=== PATIENT | male | born 1935 | race Caucasian/White ===

== ENCOUNTER 2022-02-10 09:13 | Emergency (ER) | payer MEDICARE, OTHER, SELFPAY ==
--- NOTE | ~2022-02-10 | CT_ITS ---
EXAMINATION: NONCONTRAST HEAD CT NONCONTRAST CERVICAL SPINE CT INDICATION INFORMATION: Fall with head strike. COMPARISON: 06/11/2021 TECHNIQUE: Separate noncontrast CT examinations of the head and cervical spine were performed. Coronal and sagittal images were created for each examination at the technologist workstation. This CT examination was performed using dose optimization techniques as appropriate, variously including the following: *Automated exposure control *Adjustment of mA and/or kV according to patient size (this includes techniques or standardized protocols for targeted exams where dose is matched to indication/reason for exam; i.e. extremities or head) *Use of iterative reconstruction technique DLP: 992 mGy-cm FINDINGS: Head: There is no evidence of acute intracranial hemorrhage or territorial infarction. No abnormal mass effect or midline shift is seen. Rodriguez to white matter differentiation is well preserved. No extra-axial fluid collections are identified. No hydrocephalus. Proportional prominence of the ventricles and sulcal spaces is consistent with moderate volume loss. Patchy periventricular and deep white matter hypoattenuation is consistent with moderate small vessel ischemic changes. No acute osseous or soft tissue abnormality. The mastoid air cells and visualized portions of the paranasal sinuses are well aerated. Cervical spine: There is anatomic alignment of the vertebral bodies and posterior elements. The atlantoaxial and atlantooccipital articulations are intact. Vertebral body heights are maintained. There is multilevel intervertebral disc space narrowing with endplate osteophyte formation and facet arthropathy. No evidence of acute fracture. No prevertebral soft tissue swelling. Mild centrilobular and paraseptal emphysema noted at the lung apices. Calcified granuloma at the right upper lung. Biapical pleural thickening. Secretions noted in the trachea.. The thyroid gland is unremarkable. CT/CT cervical spine wo IV con IMPRESSION: 1. No acute intracranial finding. Chronic volume loss with small vessel ischemic change. 2. No acute fracture or malalignment of the cervical spine. Moderate degenerative changes.
--- NOTE | 2022-02-10 09:20 | ED.GENADULT ---
HPI - General Adult General Chief complaint: Fall Stated complaint: HEAD LAC Time Seen by Provider: 02/10/22 09:18 Source: patient, family (son) and EMS Mode of arrival: EMS Limitations: no limitations History of Present Illness HPI narrative: Patient is a 86 year old assigned male at with a history of frequent falls presenting to the emergency department today with a scalp laceration after a fall. Patient's son states that the patient had a fall this morning and hit his head, causing a laceration. Patient's son states that he does not know when the patient's last tetanus shot was. Patient's son states that the patient did not have any loss of consciousness. Patient denies any dizziness, lightheadedness, abdominal pain, nausea, vomiting, fever, chills, blurry vision, double vision, loss of vision, chest pain, difficulty breathing, shortness of breath, back pain, night sweats, pain with urination, increased urinary frequency, increased urinary urgency, blood in his urine or stool, syncope or a near syncopal episode, bowel incontinence, bladder incontinence, bowel retention, bladder retention, or any other complaints at this time. Onset (ago): hour(s) Location: head Radiation: non-radiation Severity: mild Severity scale (1-10): 3 Relieving factors: none Exacerbating factors: none Associated symptoms: denies other symptoms Treatments prior to arrival: none Related Data Allergies Allergy/AdvReac Type Severity Reaction Status Date / Time No Known Allergies Allergy Unverified 10/23/19 15:18 [No Known Allergies*] Review of Systems Constitutional: Constitutional: Reports no additional constitutional complaints, Denies chills, Denies fever(s) and Denies night sweats Eyes: Eyes: Reports no additional eye complaints, Denies blurry vision, Denies change in vision, Denies diplopia, Denies eye discharge, Denies loss of vision and Denies eye pain ENT: Denies dizziness Cardiovascular: Cardiovascular: Reports no additional cardiovascular complaints, Denies chest pain, Denies lightheadedness, Denies Loss of Consciousness and Denies dyspnea Respiratory: Respiratory: Reports no additional respiratory complaints and Denies dyspnea Gastrointestinal: Gastrointestinal: Reports no additional gastrointestinal complaints, Denies abdominal pain, Denies melena, Denies hematochezia, Denies change in bowel habits and Denies change in stool character Genitourinary: Genitourinary: Reports no additional male genitourinary complaints, Denies hematuria, Denies oliguria, Denies difficulty urinating, Denies dysuria, Denies urinary frequency, Denies urinary hesitancy, Denies urinary incontinence and Denies urinary urgency Musculoskeletal: Musculoskeletal: Reports no additional musculoskeletal complaints, Denies numbness and Denies tingling Comments: head laceration Neurologic: Denies dizziness, Denies loss of vision, Denies numbness and Denies tingling Psychiatric: Psychiatric: Reports no additional psychiatric complaints Endocrine: Endocrine: Reports no additional endocrine complaints Hematologic/Lymphatic: Hematologic/Lymphatic: Reports no additional hematologic/lymphatic complaints Allergic/Immunologic: Allergic/Immunologic: Reports no additional allergic/immunologic complaints PMFSH Past Medical History Attestation statement: The following information was validated with the patient. (all information validated with the patient's son) Source: old records reviewed, obtained from family (patient's son) and nursing notes reviewed Social History Social History Advance Directives: No Physical Exam ED Vital Signs: Vital Signs - 24 hr 02/10/22 09:28 Temperature 98.2 F Pulse Rate 88 Respiratory Rate 18 Blood Pressure 132/65 Pulse Oximetry 99 Oxygen Delivery Method Room Air BMI result Body Mass Index 18.2 Const General: cooperative, no acute distress, alert and awake Nutritional Appearance: well nourished Orientation/consciousness: patient oriented x3 Limitations: no limitations HENMT Other: 3cm laceration to the left frontal scalp, no active bleeding Ears: hearing grossly normal bilaterally and external ears normal General nose exam: Normal external nose present, no nasal discharge noted and no epistaxis Face and sinus: Yes normal facial exam, No abrasion and No laceration Mouth: Normal oral and palatal mucosa present, no drooling and no muffled voice Eyes General: appearance normal, both eyes and all related structures Periorbital: periorbital findings normal Eyelids: Yes eyelids normal Conjunctivae: conjunctivae normal Pupils: Equal, round and reactive pupils present EOM: EOMs intact bilaterally Neck Neck: Yes normal visual inspection, Yes full ROM and Yes no lymphadenopathy Chest Chest palpation & inspection: normal inspection of the chest Resp Effort & Inspection: normal respiratory effort and able to speak in complete sentences Auscultation: clear to auscultation bilaterally Cardio Rate: regular rate Rhythm: regular rhythm GI Inspection: Yes normal to inspection Palpation (GI): Soft to palpation, not firm, nontender, no guarding and not rigid Neuro General: patient oriented x3 and moves all extremities Cranial nerves: Yes Equal, round and reactive pupils present Cognition (Neuro): normal cognition Motor exam (neuro): 5/5 motor strength present throughout Sensory Exam: Normal double simultaneous stimulation for sensation Coordination: [id number] test normal Extrem General: Yes normal to inspection, Yes full ROM and Yes capillary refill normal Psych Appearance: grossly normal Mental Status: mental status grossly normal Affect: normal affect Attitude: cooperative Thought process: Normal thought process present Thought content: Normal thought content present Insight: Good insight present (Psych) Medications Administered Discontinued Medications Generic Name Dose Route Start Last Admin Trade Name Freq PRN Reason Stop Dose Admin Diphtheria/Tetanus/Acell Pertussis 0.5 ml 02/10/22 12:07 02/10/22 12:27 Diphth,Pertus(Acell),Tet Adult 0.5 Ml Syringe IM 02/10/22 12:08 0.5 ml .ONCE ONE Administration Lidocaine HCl 1 appl 02/10/22 11:08 02/10/22 11:20 Lidocaine 4 % Cream Kit TOPICAL 02/10/22 11:09 1 appl ONCE ONE Administration Protocol Procedures Laceration Laceration 1: Site: scalp Side (If applicable): left Size (cm): 3 Description: linear Depth: simple, single layer Local Anesthetic: other anesthetic (LMX) Amount of anesthesia used (mL): 10 Pre-repair: wound explored, irrigated extensively and deep structures intact Skin layer closed with: nylon Size (cm): 6-0 Number of sutures: 3 Technique: simple, interrupted Medical Decision Making Medical Decision Making [facility] Narrative: Patient is a 86 year old assigned male at with a history of frequent falls presenting to the emergency department today after a fall. Patient's physical exam showed a 3cm laceration to the left frontal scalp with no active bleeding. Patient's head and C-Spine CTs showed no acute process. I explained my physical exam findings as well as all test results to the patient and the patient's son. I answered all questions asked by the patient and the patient's son. Patient's laceration was repaired, per procedure note, without incident. I stressed the importance of the patient taking his medication as prescribed. I stressed the importance of the patient following up with his primary care provider. I stressed the importance of the patient having his sutures removed in 10-14 days. I stressed the importance of the patient NOT soaking the repaired area. I stressed the importance of the patient returning to the emergency department immediately if he were to develop any dizziness, shortness of breath, difficulty breathing, chest pain, blurry vision, loss of vision, nausea, vomiting, abdominal pain, fever, chills, back pain, or any other complaints. Patient and the patient's son verbalized agreement and understanding with this treatment plan and discharge. Differential Diagnosis Differential Diagnoses: The differential diagnosis associated with the presentation includes laceration, avulsion, scalp wound Radiology Impression Discussion of test interpretation with radiology: I have reviewed the radiologist's reading. Radiologist Impression: My interpretation is in agreement with the radiologist's impression of these imaging studies. EXAMINATION: NONCONTRAST HEAD CT NONCONTRAST CERVICAL SPINE CT INDICATION INFORMATION: Fall with head strike. COMPARISON: 06/11/2021 TECHNIQUE: Separate noncontrast CT examinations of the head and cervical spine were performed. Coronal and sagittal images were created for each examination at the technologist workstation. This CT examination was performed using dose optimization techniques as appropriate, variously including the following: *Automated exposure control *Adjustment of mA and/or kV according to patient size (this includes techniques or standardized protocols for targeted exams where dose is matched to indication/reason for exam; i.e. extremities or head) *Use of iterative reconstruction technique DLP: 992 mGy-cm FINDINGS: Head: There is no evidence of acute intracranial hemorrhage or territorial infarction. No abnormal mass effect or midline shift is seen. Rodriguez to white matter differentiation is well preserved. No extra-axial fluid collections are identified. No hydrocephalus. Proportional prominence of the ventricles and sulcal spaces is consistent with moderate volume loss. Patchy periventricular and deep white matter hypoattenuation is consistent with moderate small vessel ischemic changes. No acute osseous or soft tissue abnormality. The mastoid air cells and visualized portions of the paranasal sinuses are well aerated. Cervical spine: There is anatomic alignment of the vertebral bodies and posterior elements. The atlantoaxial and atlantooccipital articulations are intact. Vertebral body heights are maintained. There is multilevel intervertebral disc space narrowing with endplate osteophyte formation and facet arthropathy. No evidence of acute fracture. No prevertebral soft tissue swelling. Mild centrilobular and paraseptal emphysema noted at the lung apices. Calcified granuloma at the right upper lung. Biapical pleural thickening. Secretions noted in the trachea.. The thyroid gland is unremarkable. CT/CT head/brain wo IV con IMPRESSION: 1.? No acute intracranial finding. Chronic volume loss with small vessel ischemic change. 2.? No acute fracture or malalignment of the cervical spine. Moderate degenerative changes. Dictated By: Vini Sheridan MD Signed By: Electronically signed by Vini Sheridan MD 02/10/22 1050 Independent Historian Clinical information obtained from an independent historian. History obtained from or confirmed by: EMS and Other (patient's son) Discharge Plan Discharge Clinical Impression: Fall, Laceration of scalp Patient Disposition: Home, Self-Care Additional Instructions: Have your sutures removed in 10-14 days. Do NOT soak the sutured area. Follow up with your primary care provider. Return to the emergency department immediately if your symptoms worsen or if you develop any dizziness, shortness of breath, difficulty breathing, chest pain, blurry vision, loss of vision, nausea, vomiting, abdominal pain, fever, chills, back pain, or any other complaints. Interventions: ED Discharge Assessment Last Done: 02/10/22 12:29 Discharge Date/Time: 02/10/22 12:29 Print Language: Cuban
[2022-02-10 09:28] VITALS: BP 132/65; PULSE 88; RESP 18; TEMP 36.8; O2SAT 99; BMI 18.2
--- NOTE | 2022-02-10 09:35 | PC.NURSE ---
86 y/o M BIBA from home s/p fall overnight. VNA found patient on the floor, moderate head lac to occiput. pt with many recent falls. AOx2-3. VSS
--- OUTSIDE RECORDS SUMMARY | 2022-02-10 09:59 | XMS_ITS | Continuity of Care Document ---
:1935 Author Organization [facility] Address [address] [place] [id number]- Care Team Providers Name Role Phone Clraita Godoy MD Primary Care Physician Encounter [facility] Date(s): 03/19/20 - 03/26/20 [facility] [address] [place] [id number]- Attending Physician: Clarita Godoy MD Allergies, Adverse Reactions, Alerts Substance Reaction Severity Status NKA Active Immunizations Given and Recorded Vaccine Date Status Refusal Reason influenza virus vaccine, inactivated1 01/17/19 Given influenza virus vaccine, inactivated2 11/23/16 Given influenza virus vaccine, inactivated 12/15/15 Given influenza virus vaccine, inactivated 01/25/15 Given influenza virus vaccine, inactivated 11/24/13 Given influenza virus vaccine, inactivated 10/18/12 Given influenza virus vaccine, inactivated3 10/28/11 Given pneumococcal 13-valent vaccine 06/30/14 Given pneumococcal 23-valent vaccine 11/24/13 Given Influenza Virus Vaccine (oldterm)4 01/22/08 Given Zoster Vaccine Live 07/29/07 Given Tet/Diphth/Acel, Pertussis (oldterm) 01/14/07 Given Pneumococcal Vaccine (oldterm) 01/14/07 Given 1Result Comment: [facility]# [id number] Comment: [11/23/2016] [id number] Note: Received at [facility] 4Admin Note: somewhere else Medications Altace 10 mg oral capsule 1 capsule = 10 mg, By Mouth, Daily, # 90 capsule, 3 Refills, Maintenance, 07/28/19 16:54:00 EDT, Capsule, [id number], 176, cm, 01/17/19 10:25:00 EST, Height Start Date: 07/28/19 Status: OrderedAmbien 5 mg oral tablet 1 tablet = 5 mg, By Mouth, Daily at bedtime, PRN for sleep, Fill on or after 07/07/19, # 30 tablet, 2Refills, Maintenance, 08/04/19 16:21:00 EDT, Tablet, [facility] #[id number], 176, cm, 01/17/19 10:25:00 EST, Height Start Date: 08/04/19 Stop Date: 11/02/19 Status: Orderedamoxicillin 250 mg oral capsule 4 capsule = 1,000 mg, By Mouth, Once, given 1 hour prior to dental procedures, # 4 capsule, 5 Refills, Soft Stop, 07/20/17 11:37:42 EDT Start Date: 07/20/17 Status: Orderedclopidogrel 75 mg oral tablet 75 mg, 1, tablet, By Mouth, Daily, # 90 tablet, Refills 3, Tot. Refills 3, Maintenance, 07/28/19 16:56:00 EDT, Route to Pharmacy Electronically, [facility] #[id number], 176, cm, 01/17/19 10:25:00 EST, Height Start Date: 07/28/19 Status: OrderedCrestor 20 mg oral tablet 1 tablet = 20 mg, By Mouth, Daily, # 90 tablet, 3 Refills, Maintenance, 07/28/19 16:55:00 EDT, Tablet, [facility] #[id number], 176, cm, 01/17/19 10:25:00 EST, Height Start Date: 07/28/19 Status: Orderedmetoprolol 25 mg oral tablet, extended release 25 mg, 1, tablet, By Mouth, Daily, # 90 tablet, Refills 3, Tot. Refills 3, Maintenance, 07/28/19 16:55:00 EDT, Route to Pharmacy Electronically, [facility]/pharm[facility] #[id number], 176, cm, 01/17/19 10:25:00 EST, Height Start Date: 07/28/19 Status: OrderedMiraLax oral powder for reconstitution See Instructions, 17 Gm By Mouth if no BM for 2 days dissolve in water or juice, # 255 Gm, 0 Refills, Acute 11/26/20 8:42:00 EDT, 11/27/19 8:41:00 EDT, REC Powder, [facility]/pharm[facility] #[id number], 17 Gm By Mouth ifno BM for 2 days; dissolve in water or juice, 17... Start Date: 11/27/19 Stop Date: 11/26/20 Status: Orderedomeprazole 20 mg oral enteric coated capsule See Instructions, TAKE 1 CAPSULE BY MOUTH EVERY DAY, # 90 capsule, 3 Refills, Maintenance, [facility] [id number], 176, cm, 01/17/19 10:25:00 EST, Height Start Date: 07/28/19 Status: Orderedomeprazole 20 mg oral enteric coated capsule 1 capsule = 20 mg, By Mouth, Daily, # 90 capsule, 3 Refills, Soft Stop, 07/28/19 16:54:00 EDT, [facility]/pharmacy #[id number], 176, cm, 01/17/19 10:25:00 EST, Height Start Date: 07/28/19 Status: OrderedtraZODone 50 mg oral tablet See Instructions, TAKE 1 TABLET BY MOUTH EVERYDAY AT BEDTIME, # 90 each, Refills 3, Tot. Refills 3, 03/19/20 14:38:00 EST, Instructions Replace Required Details, Route to Pharmacy Electronically, [facility]/pharm[facility] #[id number], 176, cm, 03/19/20 13:53:00 EST, Height Start Date: 03/19/20 Status: Ordered Problem List Condition Effective Dates Status Health Status Informant Gait disturbance(Confirmed) Active Allergic rhinitis(Confirmed) Active AF (atrial fibrillation)(Confirmed) Active Basal cell carcinoma (BCC) of left Active ear(Confirmed) CAD - Coronary artery Active disease(Confirmed) CAD (coronary artery Active disease)(Confirmed) Coronary stent patent BMS RCA Active 2009(Confirmed) Dementia(Confirmed) Active Fatty liver(Confirmed) Active Gastroesophageal reflux Active disease(Confirmed) S/P CABG x 4(Confirmed) Active Hypercholesterolemia(Confirmed) Active Hypertension(Confirmed) Active Insomnia(Confirmed) Active [place] - Myocardial infarction(Confirmed) Active Nephrolithiasis(Confirmed) Active Placement of stents in coronary Active artery(Confirmed) Pneumonia(Confirmed) Active Vital Signs Most recent to oldest [Reference Range]: 1 Height 176 cm (03/19/20 1:53 PM) Social History Social History Type Response Smoking Status Never smoker; Tobacco user i n household: No entered on: 06/30/14 Sex
--- OUTSIDE RECORDS SUMMARY | 2022-02-10 09:59 | XMS_ITS | Continuity of Care Document ---
:1935 Author Organization [facility] Address [address] [place] [address]- Care Team Providers Name Role Phone Clarita Godoy MD Primary Care Physician Encounter 06/25/19 - 08/27/19 [facility] [address] [place] [address]- [facility] Discharge Disposition: GOALS MET Allergies, Adverse Reactions, Alerts Substance Reaction Severity [...] Pneumococcal Vaccine (oldterm) 01/14/07 Given 1Result Comment: [facility]# [id number] Comment: [11/23/2016] [id number] Note: Received at [facility] 4Admin Note: somewhere else Medications Altace 10 [...] tablet, 2Refills, Maintenance, 08/04/19 16:21:00 EDT, [id number], cm, 01/17/19 10:25:00 EST, Height [...] 07/28/19 16:56:00 EDT, [id number], cm, 01/17/19 10:25:00 EST, Height Start Date: 07/28/19 Status: OrderedCrestor 20 mg oral tablet 1 tablet = 20 mg, By Mouth, Daily, # 90 tablet, 3 Refills, Maintenance, 07/28/19 16:55:00 EDT, Table[facility], [id number], cm, 01/17/19 10:25:00 EST, Height Start Date: 07/28/19 Status: Orderedmetoprolol 25 mg oral tablet, extended release 25 mg, 1, tablet, By Mouth, Daily, # 90 tablet, Refills 3, Tot. Refills 3, Maintenance, 07/28/19 16:55:00 EDT, [id number], cm, 01/17/19 10:25:00 EST, Height Start Date: 07/28/19 Status: Orderedomeprazole 20 mg oral enteric coated capsule See Instructions, TAKE 1 CAPSULE BY MOUTH EVERY DAY, # 90 capsule, 3 Refills, Maintenance, [facility] [id number], 176, cm, 01/17/19 10:25:00 EST, Height Start Date: 07/28/19 Status: Orderedomeprazole 20 mg oral enteric coated capsule 1 capsule = 20 mg, By Mouth, Daily, # 90 capsule, 3 Refills, Soft Stop, 07/28/19 16:54:00 EDT, [id number], 176, cm, 01/17/19 10:25:00 EST, Height Start Date: 07/28/19 Status: OrderedtraZODone 50 mg oral tablet See Instructions, TAKE 1 TABLET BY MOUTH EVERYDAY AT BEDTIME, # 90 tablet, Refills 1, Maintenance, Instructions Replace Required Details, Route to Pharmacy Electronically, [id number], 176, cm, 01/17/19 10:25:00 EST, Height Start Date: 06/18/19 Status: Ordered Problem List Condition Effective Dates [...] Active Hypercholesterolemia(Confirmed) Active Hypertension(Confirmed) Active Insomnia(Confirmed) Active [place] - Myocardial infarction(Confirmed) Active Nephrolithiasis(Confirmed) Active Placement of stents in coronary Active artery(Confirmed) Pneumonia(Confirmed) Active Social History Social History Type Response Smoking Status Never smoker; Tobacco user i n household: No entered on: 06/30/14 Sex
--- OUTSIDE RECORDS SUMMARY | 2022-02-10 09:59 | XMS_ITS | Continuity of Care Document ---
:1935 Author Organization [facility] [employer] [facility] Address [address] [place] [address]- Care Team Providers Name Role Phone Clarita Godoy MD Primary Care [id number] Date(s): 01/17/19 - 01/24/19 [facility] [employer] [facility] [address] [place] [address]- Attending Physician: Clarita Godoy MD Allergies, Adverse [...] Pneumococcal Vaccine (oldterm) 01/14/07 Given 1Result Comment: [facility]# [id number] Comment: [11/23/2016] [id number] Note: Received at [facility] 4Admin Note: somewhere else Medications Altace 10 mg oral capsule 1 capsule = 10 mg, By Mouth, Daily, # 90 capsule, 3 Refills, Maintenance, 07/22/18 15:13:35 EDT, Capsule Start Date: 07/22/18 Status: OrderedAmbien 5 mg oral tablet 1 tablet = 5 mg, By Mouth, Daily at bedtime, PRN for sleep, Fill on or after 11/07/2018, # 30 tablet,2 Refills, Maintenance, 02/05/19 16:21:00 EST, Tablet Start Date: 02/05/19 Stop Date: 05/06/19 Status: OrderedAmbien 5 mg oral tablet 1 tablet = 5 mg, By Mouth, Daily at bedtime, PRN for sleep, for 30 days, Fill on or after 11/07/2018,# 30 tablet, 2 Refills, Hard Stop 02/05/19 16:21:00 EST, 11/07/18 16:21:00 EDT, Tablet Start Date: 11/07/18 Stop Date: 02/05/19 Status: Orderedamoxicillin 250 mg oral capsule 4 capsule = 1,000 mg, By Mouth, Once, given 1 hour prior to dental procedures, # 4 capsule, 5 Refills, Soft Stop, 07/20/17 11:37:42 EDT Start Date: 07/20/17 Status: Orderedclopidogrel 75 mg oral tablet 75 mg, 1, tablet, By Mouth, Daily, # 90 tablet, Refills 3, Tot. Refills 3, Maintenance, 07/22/18 15:15:12 EDT, Route to Pharmacy Electronically, [id number], [facility]/pharmacy #[id number] Start Date: 07/22/18 Status: OrderedCrestor 20 mg oral tablet 1 tablet = 20 mg, By Mouth, Daily, # 90 tablet, 3 Refills, Maintenance, 07/22/18 15:13:36 EDT, Tablet Start Date: 07/22/18 Status: Orderedfluticasone 50 mcg/inh nasal spray See Instructions, SPRAY 1 SPRAY INTO EACH NOSTRIL TWICE A DAY, # 16 mL, 5 Refills, Maintenance, 10/17/18 12:43:39 EDT, 30, SPRAY 1 SPRAY INTO EACH NOSTRIL TWICE A DAY Start Date: 10/17/18 Status: Orderedmetoprolol 25 mg oral tablet, extended release 25 mg, 1, tablet, By Mouth, Daily, # 90 tablet, Refills 3, Tot. Refills 3, Maintenance, 07/22/18 15:11:49 EDT, Route to Pharmacy Electronically, [id number], [facility]/pharmacy #[id number] Start Date: 07/22/18 Status: Orderedomeprazole 20 mg oral enteric coated capsule See Instructions, # 90 capsule, TAKE 1 CAPSULE BY MOUTH EVERY DAY, [facility]/pharmacy #[id number] Start Date: 11/28/18 Status: OrderedtraZODone 50 mg oral tablet 50 mg, 1, tablet, By Mouth, Daily at bedtime, # 30 tablet, Refills 5, Tot. Refills 5, Maintenance, 07/22/18 15:12:55 EDT, Route to Pharmacy Electronically, [id number], [facility]/pharmacy #0373 Start Date: 07/22/18 Status: Ordered Problem List Condition Effective Dates [...] Active Hypercholesterolemia(Confirmed) Active Hypertension(Confirmed) Active Insomnia(Confirmed) Active [place] - Myocardial infarction(Confirmed) Active Nephrolithiasis(Confirmed) Active Placement of stents in coronary Active artery(Confirmed) Pneumonia(Confirmed) Active Vital Signs Most recent to oldest [Reference Range]: 1 Height 176 cm (01/17/19 10:25 AM) Weight 72 kg (01/17/19 10:25 AM) Oxygen Saturation [94-100 %] 98 % (01/17/19 10:25 AM) Pulse Rate [55-90 bpm] 74 bpm (01/17/19 10:25 AM) Body Mass Index [18.5-24.99] 23.24 (01/17/19 10:25 AM) Blood Pressure [90-138/55-84 mm Hg] 122/86 mm Hg (01/17/19 10:25 AM) Temperature [96.8-100.4 DegF] 98.9 DegF (01/17/19 10:25 AM) Blood pressure sites Arm, left (01/17/19 10:25 AM) Temperature Route Temporal (01/17/19 10:25 AM) Weight Obtained Via Standing scale (01/17/19 10:25 AM) Social History Social History Type Response Smoking Status Never smoker; Tobacco user i n household: No entered on: 06/30/14 Sex
--- OUTSIDE RECORDS SUMMARY | 2022-02-10 09:59 | XMS_ITS | Continuity of Care Document ---
:1935 Author Organization [facility] Address [address] [place] [address]- Care Team Providers Name Role Phone Clarita Godoy MD Primary Care Physician Encounter [facility] Date(s): 02/18/21 - 02/25/21 [facility] [address] [place] [address]- Attending Physician: Leopoldo Gibson Allergies, Adverse Reactions, Alerts No Known Allergies Immunizations Given and Recorded Vaccine Date Status Refusal Reason influenza virus vaccine, inactivated 12/07/20 Recorded influenza virus vaccine, inactivated1 01/17/19 Given influenza virus vaccine, inactivated2 11/23/16 Given influenza virus vaccine, inactivated 12/15/15 Given influenza virus vaccine, inactivated 01/25/15 Given influenza virus vaccine, inactivated 11/24/13 Given influenza virus vaccine, inactivated 10/18/12 Given influenza virus vaccine, inactivated3 10/28/11 Given SARS-CoV-2 (COVID-19) mRNA BNT-162b2 vac 12/07/20 Recorde d SARS-CoV-2 (COVID-19) mRNA BNT-162b2 vac 05/17/20 Recorde d SARS-CoV-2 (COVID-19) mRNA BNT-162b2 vac 04/26/20 Recorde d tetanus-diphtheria toxoids (Td) 09/05/15 Recorded pneumococcal 13-valent vaccine 06/30/14 Given pneumococcal 23-valent vaccine 11/24/13 Given Influenza Virus Vaccine (oldterm)4 01/22/08 Given Zoster Vaccine Live 07/29/07 Given Tet/Diphth/Acel, Pertussis (oldterm) 01/14/07 Given Pneumococcal Vaccine (oldterm) 01/14/07 Given 1Result Comment: [facility]# [id number] Comment: [11/23/2016] [id number] Note: Received at the [place] 4Admin Note: somewhere else Medications Ambien 5 mg oral tablet 1 tablet = 5 mg, By Mouth, Daily at bedtime, PRN for sleep, Fill on or after 07/07/19, # 30 tablet, 2Refills, Maintenance, 08/04/19 16:21:00 EDT, Tablet, [facility]/pharmacy #[id number], 176, cm, 01/17/19 10:25:00 EST, Height Start Date: 08/04/19 Stop Date: 11/02/19 Status: Orderedamoxicillin 250 mg oral capsule 4 capsule = 1,000 mg, By Mouth, Once, given 1 hour prior to dental procedures, # 4 capsule, 5 Refills, Soft Stop, 07/20/17 11:37:42 EDT Start Date: 07/20/17 Status: Orderedclopidogrel 75 mg oral tablet 1, tablet, By Mouth, Daily, # 90 tablet, Refills 3, Tot. Refills 0, Maintenance, 07/02/20 11:24:00 EDT, Route to Pharmacy Electronically, [facility] STORE [id number], 176, cm, 06/14/20 13:58:00 EDT, Height Start Date: 07/02/20 Status: OrderedMetoprolol Succinate ER 25 mg oral tablet, extended release 1 tablet, By Mouth, Daily, # 90 tablet, 3 Refills, Maintenance, 11/16/20 16:18:00 EDT, [facility], 176, cm, 10/21/20 9:42:00 EDT, Height Start Date: 11/16/20 Status: Orderedomeprazole 20 mg oral enteric coated capsule See Instructions, TAKE 1 CAPSULE BY MOUTH EVERY DAY, # 90 capsule, 3 Refills, Maintenance, [facility] [id number], 176, cm, 01/17/19 10:25:00 EST, Height Start Date: 07/28/19 Status: Orderedomeprazole 20 mg oral enteric coated capsule 1 capsule = 20 mg, By Mouth, Daily, # 90 capsule, 3 Refills, Soft Stop, 07/28/19 16:54:00 EDT, [facility]/pharmacy #0373, 176, cm, 01/17/19 10:25:00 EST, Height Start Date: 07/28/19 Status: Orderedramipril 10 mg oral capsule 1 capsule, By Mouth, Daily, # 90 capsule, 3 Refills, Maintenance, 07/02/20 11:21:00 EDT, [id number], 176, cm, 06/14/20 13:58:00 EDT, Height Start Date: 07/02/20 Status: Orderedrosuvastatin 20 mg oral tablet 1 tablet, By Mouth, Daily, # 90 tablet, 3 Refills, Maintenance, 09/08/20 16:43:00 EDT, [facility] STORE [id number], 176, cm, 06/14/20 13:58:00 EDT, Height Start Date: 09/08/20 Status: OrderedtraZODone 50 mg oral tablet See Instructions, TAKE 1 TABLET BY MOUTH EVERYDAY AT BEDTIME, # 90 each, Refills 3, Tot. Refills 3, 03/19/20 14:38:00 EST, Instructions Replace Required Details, Route to Pharmacy Electronically, [facility]/pharmacy #[id number], 176, cm, 03/19/20 13:53:00 EST, Height [...] Active Hypercholesterolemia(Confirmed) Active Hypertension(Confirmed) Active Insomnia(Confirmed) Active [place] - Myocardial infarction(Confirmed) Active Nephrolithiasis(Confirmed) Active Placement of stents in coronary Active artery(Confirmed) Pneumonia(Confirmed) Active Social History Social History Type Response Smoking Status Never smoker; Tobacco user i n household: No entered on: 06/30/14 Sex
--- OUTSIDE RECORDS SUMMARY | 2022-02-10 09:59 | XMS_ITS | Continuity of Care Document ---
:1935 Author Organization [employer] [facility] Address [address] [place] [address]- Care Team Providers Name Role Phone Clarita Godoy MD Primary Care Physician Encounter [facility] Date(s): 08/07/19 - 09/06/19 [facility] [employer] [facility] [address] [place] [address]- Allergies, Adverse Reactions, Alerts Substance Reaction Severity [...] Pneumococcal Vaccine (oldterm) 01/14/07 Given 1Result Comment: [facility]# [id number] Comment: [11/23/2016] [id number] Note: Received at [facility] 4Admin Note: somewhere else Medications Altace [...] tablet, 2Refills, Maintenance, 08/04/19 16:21:00 EDT, Tablet, [id number] 176, cm, 01/17/19 10:25:00 EST, Height [...] 07/28/19 16:56:00 EDT, [id number] 176, cm, 01/17/19 10:25:00 EST, Height Start Date: 07/28/19 Status: OrderedCrestor 20 mg oral tablet 1 tablet = 20 mg, By Mouth, Daily, # 90 tablet, 3 Refills, Maintenance, 07/28/19 16:55:00 EDT, Tablet, [facility], 176, cm, 01/17/19 10:25:00 EST, Height Start Date: 07/28/19 Status: Orderedmetoprolol 25 mg oral tablet, extended release 25 mg, 1, tablet, By Mouth, Daily, # 90 tablet, Refills 3, Tot. Refills 3, Maintenance, 07/28/19 16:55:00 EDT, [facility] Electronically, [facility], 176, cm, 01/17/19 10:25:00 EST, Height Start Date: 07/28/19 Status: Orderedomeprazole 20 mg oral enteric coated capsule See Instructions, TAKE 1 CAPSULE BY MOUTH EVERY DAY, # 90 capsule, 3 Refills, Maintenance, [facility] [id number], 176, cm, 01/17/19 10:25:00 EST, Height Start Date: 07/28/19 Status: Orderedomeprazole 20 mg oral enteric coated capsule 1 capsule = 20 mg, By Mouth, Daily, # 90 capsule, 3 Refills, Soft Stop, 07/28/19 16:54:00 EDT, [facility]/pharmacy #0373, 176, cm, 01/17/19 10:25:00 EST, Height Start Date: 07/28/19 Status: OrderedtraZODone 50 mg oral tablet See Instructions, TAKE 1 TABLET BY MOUTH EVERYDAY AT BEDTIME, # 90 tablet, Refills 1, Maintenance, Instructions Replace Required Details, Route to Pharmacy Electronically, [facility] STORE 54847, 176, cm, 01/17/19 10:25:00 EST, Height Start [...] Active Hypercholesterolemia(Confirmed) Active Hypertension(Confirmed) Active Insomnia(Confirmed) Active [place] - Myocardial infarction(Confirmed) Active Nephrolithiasis(Confirmed) Active Placement of stents in coronary Active artery(Confirmed) Pneumonia(Confirmed) Active Social History Social History Type Response Smoking Status Never smoker; Tobacco user i n household: No entered on: 06/30/14 Sex
--- OUTSIDE RECORDS SUMMARY | 2022-02-10 09:59 | XMS_ITS | Continuity of Care Document ---
:1935 Author Organization [facility] Address [address] [place] [address]- Care Team Providers Name Role Phone Clarita Godoy MD [id number] Date(s): 07/28/19 - 08/04/19 [facility] [address] [place] [phone]- Attending Physician: Clarita Godoy MD Allergies, Adverse [...] Pneumococcal Vaccine (oldterm) 01/14/07 Given 1Result Comment: [facility]# [id number] Comment: [11/23/2016] [id number] Note: Received at the [place] 4Admin Note: somewhere else Medications Altace 10 [...] tablet, 2Refills, Maintenance, 08/04/19 16:21:00 EDT, Tablet, [facility]/pharmacy #0373, 176, cm, 01/17/19 10:25:00 EST, Height [...] 07/28/19 16:56:00 EDT, Route to Pharmacy Electronically, [facility]/pharmacy #0373, 176, cm, 01/17/19 10:25:00 EST, Height Start Date: 07/28/19 Status: OrderedCrestor 20 mg oral tablet 1 tablet = 20 mg, By Mouth, Daily, # 90 tablet, 3 Refills, Maintenance, 07/28/19 16:55:00 EDT, Tablet, [facility]/pharmacy #0373, 176, cm, 01/17/19 10:25:00 EST, Height Start Date: 07/28/19 Status: Orderedmetoprolol 25 mg oral tablet, extended release 25 mg, 1, tablet, By Mouth, Daily, # 90 tablet, Refills 3, Tot. Refills 3, Maintenance, 07/28/19 16:55:00 EDT, Route to Pharmacy Electronically, [facility]/pharmacy #0373, 176, cm, 01/17/19 10:25:00 EST, Height Start Date: 07/28/19 Status: Orderedomeprazole 20 mg oral enteric coated capsule See Instructions, TAKE 1 CAPSULE BY MOUTH EVERY DAY, # 90 capsule, 3 Refills, Maintenance, [facility] [id number], 176, cm, 01/17/19 10:25:00 EST, Height Start Date: 07/28/19 Status: Orderedomeprazole 20 mg oral enteric coated capsule 1 capsule = 20 mg, By Mouth, Daily, # 90 capsule, 3 Refills, Soft Stop, 07/28/19 16:54:00 EDT, [facility]/pharmacy #0373, 176, cm, 01/17/19 10:25:00 EST, Height Start Date: 07/28/19 Status: OrderedtraZODone 50 mg oral tablet See Instructions, TAKE 1 TABLET BY MOUTH EVERYDAY AT BEDTIME, # 90 tablet, Refills 1, Maintenance, Instructions Replace Required Details, Route to Pharmacy Electronically, [facility] STORE 09576, 176, cm, 01/17/19 10:25:00 EST, Height Start [...] Active Hypercholesterolemia(Confirmed) Active Hypertension(Confirmed) Active Insomnia(Confirmed) Active [place] - Myocardial infarction(Confirmed) Active Nephrolithiasis(Confirmed) Active Placement of stents in coronary Active artery(Confirmed) Pneumonia(Confirmed) Active Social History Social History Type Response Smoking Status Never smoker; Tobacco user i n household: No entered on: 06/30/14 Sex
--- OUTSIDE RECORDS SUMMARY | 2022-02-10 09:59 | XMS_ITS | Continuity of Care Document ---
:1935 Author Organization [facility] [facility] Address [address] [place] [phone]- Care Team Providers Name Role Phone Jayne PATEL, Clarita Lieberman Primary Care Physician Encounter [facility] Date(s): 06/14/20 - 07/14/20 [facility] [address] [place] [phone]- Attending Physician: Ashley Roa Admitting Physician: Ashley Roa Referring Physician: AdmtrAshley Allergies, Adverse Reactions, Alerts Substance Reaction Severity Status NKA Active Immunizations Given and Recorded Vaccine Date Status Refusal Reason SARS-CoV-2 (COVID-19) mRNA BNT-162b2 vac 05/17/20 Recorde d SARS-CoV-2 (COVID-19) mRNA BNT-162b2 vac 04/26/20 Recorde d influenza virus vaccine, inactivated1 01/17/19 Given influenza virus vaccine, inactivated2 11/23/16 Given influenza virus vaccine, inactivated 12/15/15 Given influenza virus vaccine, inactivated 01/25/15 Given influenza virus vaccine, inactivated 11/24/13 Given influenza virus vaccine, inactivated 10/18/12 Given influenza virus vaccine, inactivated3 10/28/11 Given tetanus-diphtheria toxoids (Td) 09/05/15 Recorded pneumococcal 13-valent vaccine 06/30/14 Given pneumococcal 23-valent vaccine 11/24/13 Given Influenza Virus Vaccine (oldterm)4 01/22/08 Given Zoster Vaccine Live 07/29/07 Given Tet/Diphth/Acel, Pertussis (oldterm) 01/14/07 Given Pneumococcal Vaccine (oldterm) 01/14/07 Given 1Result Comment: [facility]# [id number] Comment: [11/23/2016] [id number] Note: Received at the [facility] 4Admin Note: somewhere else Medications Ambien 5 mg oral tablet 1 tablet = 5 mg, By Mouth, Daily at bedtime, PRN for sleep, Fill on or after 07/07/19, # 30 tablet, 2Refills, Maintenance, 08/04/19 16:21:00 EDT, Tablet, [facility]/pharmacy #0373, 176, cm, 01/17/19 10:25:00 EST, Height [...] 11:24:00 EDT, Route to Pharmacy Electronically, [facility] STORE [id number], 176, cm, 06/14/20 13:58:00 EDT, Height Start Date: 07/02/20 Status: OrderedCrestor 20 mg oral tablet 1 tablet = 20 mg, By Mouth, Daily, # 90 tablet, 3 Refills, Maintenance, 07/28/19 16:55:00 EDT, Tablet, [facility]/pharmacy #0373, 176, cm, 01/17/19 10:25:00 EST, Height Start Date: 07/28/19 Status: Orderedmetoprolol 25 mg oral tablet, extended release 25 mg, 1, tablet, By Mouth, Daily, # 90 tablet, Refills 3, Tot. Refills 3, Maintenance, 07/28/19 16:55:00 EDT, Route to Pharmacy Electronically, [facility]/pharmacy #0373, 176, cm, 01/17/19 10:25:00 EST, Height Start Date: 07/28/19 Status: OrderedMiraLax oral powder for reconstitution See Instructions, 17 Gm By Mouth if no BM for 2 days dissolve in water or juice, # 255 Gm, 0 Refills, Acute 11/26/20 8:42:00 EDT, 11/27/19 8:41:00 EDT, REC Powder, [facility]/pharmacy #0373, 17 Gm By Mouth ifno BM for 2 days; dissolve in water or juice, 17... Start Date: 11/27/19 Stop Date: 11/26/20 Status: Orderedomeprazole 20 mg oral enteric coated capsule See Instructions, TAKE 1 CAPSULE BY MOUTH EVERY DAY, # 90 capsule, 3 Refills, Maintenance, [id number], 176, cm, 01/17/19 10:25:00 EST, Height Start Date: 07/28/19 Status: Orderedomeprazole 20 mg oral enteric coated capsule 1 capsule = 20 mg, By Mouth, Daily, # 90 capsule, 3 Refills, Soft Stop, 07/28/19 16:54:00 EDT, [facility]/pharmacy #0373, 176, cm, 01/17/19 10:25:00 EST, Height Start Date: 07/28/19 Status: Orderedramipril 10 mg oral capsule 1 capsule, By Mouth, Daily, # 90 capsule, 3 Refills, Maintenance, 07/02/20 11:21:00 EDT, [facility] STORE 68059, 176, cm, 06/14/20 13:58:00 EDT, Height Start Date: 07/02/20 Status: OrderedtraZODone 50 mg oral tablet See Instructions, TAKE 1 TABLET BY MOUTH EVERYDAY AT BEDTIME, # 90 each, Refills 3, Tot. Refills 3, 03/19/20 14:38:00 EST, Instructions Replace Required Details, Route to Pharmacy Electronically, [facility]/pharmacy #0373, 176, cm, 03/19/20 13:53:00 EST, Height [...] Active Hypercholesterolemia(Confirmed) Active Hypertension(Confirmed) Active Insomnia(Confirmed) Active [place] - Myocardial infarction(Confirmed) Active Nephrolithiasis(Confirmed) Active Placement of stents in coronary Active artery(Confirmed) Pneumonia(Confirmed) Active Social History Social History Type Response Smoking Status Never smoker; Tobacco user i n household: No entered on: 06/30/14 Sex
--- OUTSIDE RECORDS SUMMARY | 2022-02-10 09:59 | XMS_ITS | Continuity of Care Document ---
:1935 Author Organization [facility] [place] Address [address] [place] [address] Drive [address] [place] [address]- Care Team Providers Name Role Phone Jayne PATEL, Clarita Lieberman Primary Care Physician Encounter [facility] Date(s): 01/27/19 - 04/02/19 [facility] [address] [place] [address] Drive [address] [place] [address]- [facility] Attending Physician: Ascencion Jha MD Referring Physician: Mark Bernabe MD Allergies, Adverse Reactions, Alerts Substance Reaction [...] Pneumococcal Vaccine (oldterm) 01/14/07 Given 1Result Comment: [facility]# [id number] Comment: [11/23/2016] [id number] Note: Received at [facility] 4Admin Note: somewhere else Medications Altace 10 mg oral capsule 1 capsule = 10 mg, By Mouth, Daily, # 90 capsule, 3 Refills, Maintenance, 07/22/18 15:13:35 EDT, Capsule Start Date: 07/22/18 Status: OrderedAmbien 5 mg oral tablet 1 tablet = 5 mg, By Mouth, Daily at bedtime, PRN for sleep, Fill on or after 03/26/19, # 30 tablet, 2Refills, Maintenance, 05/06/19 16:21:00 EDT, Tablet, [facility]/pharmacy #0373, 176, cm, 01/17/19 10:25:00 EST, Height Start Date: 05/06/19 Stop Date: 08/04/19 Status: OrderedAmbien 5 mg oral tablet 1 tablet = 5 mg, By Mouth, Daily at bedtime, PRN for sleep, for 30 days, Fill on or after 11/07/2018,# 30 tablet, 2 Refills, Hard Stop 05/06/19 16:21:00 EDT, 02/05/19 16:21:00 EST, Tablet, [facility]/pharmacy#0373 Start Date: 02/05/19 Stop Date: 05/06/19 Status: Orderedamoxicillin 250 mg oral capsule 4 capsule = 1,000 mg, By Mouth, Once, given 1 hour prior to dental procedures, # 4 capsule, 5 Refills, Soft Stop, 07/20/17 11:37:42 EDT Start Date: 07/20/17 Status: Orderedclopidogrel 75 mg oral tablet 75 mg, 1, tablet, By Mouth, Daily, # 90 tablet, Refills 3, Tot. Refills 3, Maintenance, 07/22/18 15:15:12 EDT, Route to Pharmacy Electronically, [id number], [facility]/pharmacy #0373 Start Date: 07/22/18 Status: OrderedCrestor 20 [...] 07/22/18 15:11:49 EDT, Route to Pharmacy Electronically, [id number], [facility]/pharmacy #0373 Start Date: 07/22/18 Status: Orderedomeprazole 20 mg oral enteric coated capsule See Instructions, TAKE 1 CAPSULE BY MOUTH EVERY DAY, # 90 capsule, 0 Refills, Soft Stop, 02/27/19 8:29:00 EST, [facility]/pharmacy #0373, 176, cm, 01/17/19 10:25:00 EST, Height Start Date: 02/27/19 Status: OrderedtraZODone 50 mg oral tablet 50 mg, 1, tablet, By Mouth, Daily at bedtime, # 30 tablet, Refills 5, Tot. Refills 5, Maintenance, 07/22/18 15:12:55 EDT, Route to Pharmacy Electronically, [id number], [facility]/pharmacy #0373 Start Date: 07/22/18 Status: Ordered Problem [...] Active Hypercholesterolemia(Confirmed) Active Hypertension(Confirmed) Active Insomnia(Confirmed) Active [place] - Myocardial infarction(Confirmed) Active Nephrolithiasis(Confirmed) Active Placement of stents in coronary Active artery(Confirmed) Pneumonia(Confirmed) Active Social History Social History Type Response Smoking Status Never smoker; Tobacco user i n household: No entered on: 06/30/14 Sex
--- OUTSIDE RECORDS SUMMARY | 2022-02-10 09:59 | XMS_ITS | Continuity of Care Document ---
:1935 Author Organization [facility] Address [address] [place], [place] [address]- Care Team Providers Name Role Phone Clarita Godoy MD Primary Care Physician Encounter [facility] Date(s): 02/18/21 - 03/20/21 [facility] [address] [place] [address]- Allergies, Adverse Reactions, Alerts No Known Allergies [...] Pneumococcal Vaccine (oldterm) 01/14/07 Given 1Result Comment: [facility]# [id number] Comment: [11/23/2016] [id number] Note: Received at [facility] 4Ain Note: somewhere else Medications amoxicillin 250 mg oral capsule 4 capsule = 1,000 mg, By Mouth, Once, given 1 hour prior to dental procedures, # 4 capsule, 5 Refills, Soft Stop, 07/20/17 11:37:42 EDT Start Date: 07/20/17 Status: Orderedclopidogrel 75 mg oral tablet 1, tablet, By Mouth, Daily, # 90 tablet, Refills 3, Tot. Refills 0, Maintenance, 07/02/20 11:24:00 EDT, Route to Pharmacy Electronically, [facility], 176, cm, 06/14/20 13:58:00 EDT, Height Start [...] 3 Refills, Soft Stop, 07/28/19 16:54:00 EDT, [facility]/pharmacy #0373, 176, cm, 01/17/19 10:25:00 EST, Height Start Date: 07/28/19 Status: Orderedramipril 10 mg oral capsule 1 capsule, By Mouth, Daily, # 90 capsule, 3 Refills, Maintenance, 07/02/20 11:21:00 EDT, [facility], 176, cm, 06/14/20 13:58:00 EDT, Height Start Date: 07/02/20 Status: Orderedrosuvastatin 20 mg oral tablet 1 tablet, By Mouth, Daily, # 90 tablet, 3 Refills, Maintenance, 09/08/20 16:43:00 EDT, [facility], 176, cm, 06/14/20 13:58:00 EDT, Height Start Date: 09/08/20 Status: OrderedtraZODone 50 mg oral tablet See Instructions, TAKE 1 TABLET BY MOUTH EVERYDAY AT BEDTIME, # 90 each, Refills 3, Tot. Refills 3, 03/19/20 14:38:00 EST, Instructions Replace Required Details, Route to Pharmacy Electronically, [facility], 176, cm, 03/19/20 13:53:00 EST, Height Start Date: 03/19/20 Status: Ordered Problem List Condition Effective Dates Status Health Status Informant Gait disturbance(Confirmed) Active Allergic rhinitis(Confirmed) Active AF (atrial fibrillation)(Confirmed) Active Basal cell carcinoma (BCC) of left Active ear(Confirmed) CAD - Coronary artery Active disease(Confirmed) CAD (coronary artery Active disease)(Confirmed) Coronary stent patent BMS RCA Active 2008(Confirmed) Dementia(Confirmed) Active Fatty liver(Confirmed) Active Gastroesophageal reflux Active disease(Confirmed) S/P CABG x 4(Confirmed) Active Hypercholesterolemia(Confirmed) Active Hypertension(Confirmed) Active Insomnia(Confirmed) Active [place] - Myocardial infarction(Confirmed) Active Nephrolithiasis(Confirmed) Active Placement of stents in coronary Active artery(Confirmed) Pneumonia(Confirmed) Active Social History Social History Type Response Smoking Status Never smoker; Tobacco user i n household: No entered on: 06/30/14 Sex
--- OUTSIDE RECORDS SUMMARY | 2022-02-10 10:00 | XMS_ITS | Continuity of Care Document ---
:1935 Author Organization [facility] Address [address] [place] [address]- Care Team Providers Name Role Phone Clarita Godoy MD Primary Care Physician [id number] Date(s): 06/23/19 - 06/30/19 [facility] [address] [place] [address]- Attending Physician: Clarita Godoy MD Allergies, Adverse [...] Vaccine (oldterm) 01/14/07 Given 1Result Comment: [facility]# [id number] Comment: [11/23/2016] [id number] Note: Received at [facility] 4Admin Note: somewhere else Medications Altace [...] tablet, 2Refills, Maintenance, 05/06/19 16:21:00 EDT, Tablet, [facility]/pharmacy #0373, 176, cm, 01/17/19 10:25:00 EST, Height Start Date: 05/06/19 Stop Date: 08/04/19 Status: Orderedamoxicillin 250 mg oral capsule 4 capsule = 1,000 mg, By Mouth, Once, given 1 hour prior to dental procedures, # 4 capsule, 5 Refills, Soft Stop, 07/20/17 11:37:42 EDT Start Date: 07/20/17 Status: Orderedclopidogrel 75 mg oral tablet 75 mg, 1, tablet, By Mouth, Daily, # 90 tablet, Refills 3, Tot. Refills 3, Maintenance, 07/22/18 15:15:12 EDT, Route to Pharmacy Electronically, [id number], [facility]/pharmacy #0373 Start Date: 07/22/18 Status: OrderedCrestor 20 mg oral tablet 1 tablet = 20 mg, By Mouth, Daily, # 90 tablet, 3 Refills, Maintenance, 07/22/18 15:13:36 EDT, Tablet Start Date: 07/22/18 Status: Orderedmetoprolol 25 mg oral tablet, extended release 25 mg, 1, tablet, By Mouth, Daily, # 90 tablet, Refills 3, Tot. Refills 3, Maintenance, 07/22/18 15:11:49 EDT, Route to Pharmacy Electronically, [id number], [facility]/pharmacy #0373 Start Date: 07/22/18 Status: Orderedomeprazole 20 mg oral enteric coated capsule 1 capsule = 20 mg, By Mouth, Daily, # 90 capsule, 0 Refills, Soft Stop, 05/01/19 11:35:00 EDT, [facility]/pharmacy #0373, 176, cm, 01/17/19 10:25:00 EST, Height Start Date: 05/01/19 Status: OrderedtraZODone 50 mg oral tablet See Instructions, TAKE 1 TABLET BY MOUTH EVERYDAY AT BEDTIME, # 90 tablet, Refills 1, Maintenance, Instructions Replace Required Details, Route to Pharmacy Electronically, [facility], 176, cm, 01/17/19 10:25:00 EST, Height Start Date: 06/18/19 Status: Orderedzolpidem 5 mg oral tablet See Instructions, TAKE 1 TABLET BY MOUTH AT BEDTIME NEEDED FOR SLEEP, # 30 tablet, 2 Refills, Acute 08/23/19 16:51:00 EDT, 06/23/19 16:32:00 EDT, [facility]/pharmacy #0373, 176, cm, 01/17/19 10:25:00 EST, Height Start Date: 06/23/19 Stop Date: 08/23/19 Status: Ordered Problem List Condition Effective Dates [...]
--- OUTSIDE RECORDS SUMMARY | 2022-02-10 10:00 | XMS_ITS | Continuity of Care Document ---
:1935 Author Organization [facility] Address [address] [place], [place] [phone]- Care Team Providers Name Role Phone Clarita Godoy MD Primary Care Physician Encounter [facility] Date(s): 03/16/21 - 04/15/21 [facility] [address] [place] [address]- Allergies, Adverse Reactions, Alerts No Known Allergies [...] Vaccine (oldterm) 01/14/07 Given 1Result Comment: [facility]# [id number] Comment: [11/23/2016] [id number] Note: Received at [facility] 4Ain Note: somewhere else Medications amoxicillin 250 [...] 07/02/20 11:24:00 EDT, Route to Pharmacy Electronically, [facility], 176, cm, 06/14/20 13:58:00 EDT, Height Start [...] 3 Refills, Soft Stop, 07/28/19 16:54:00 EDT, [facility]/pharmacy #0373, 176, cm, 01/17/19 10:25:00 EST, Height Start Date: 07/28/19 Status: Orderedramipril 10 mg oral capsule 1 capsule, By Mouth, Daily, # 90 capsule, 3 Refills, Maintenance, 07/02/20 11:21:00 EDT, [facility], 176, cm, 06/14/20 13:58:00 EDT, Height Start Date: 07/02/20 Status: Orderedrosuvastatin 20 mg oral tablet 1 tablet, By Mouth, Daily, # 90 tablet, 3 Refills, Maintenance, 09/08/20 16:43:00 EDT, [facility], 176, cm, 06/14/20 13:58:00 EDT, Height Start [...] Active Hypercholesterolemia(Confirmed) Active Hypertension(Confirmed) Active Insomnia(Confirmed) Active [place] - Myocardial infarction(Confirmed) Active Nephrolithiasis(Confirmed) Active Placement of stents in coronary Active artery(Confirmed) Pneumonia(Confirmed) Active Social History Social History Type Response Smoking Status Never smoker; Tobacco user i n household: No entered on: 06/30/14 Sex
--- OUTSIDE RECORDS SUMMARY | 2022-02-10 10:00 | XMS_ITS | Continuity of Care Document ---
:1935 Author Organization [facility] Address [address] [place] [phone] Care Team Providers Name Role Phone Clarita Godoy MD Primary Care Physician Encounter [facility] [id number] Date(s): 10/22/18 - 02/19/19 [facility] [address] [place] [phone]- Attending Physician: Clarita Godoy MD Allergies, Adverse [...] Pneumococcal Vaccine (oldterm) 01/14/07 Given 1Result Comment: [facility]# [id number] Comment: [11/23/2016] [id number] Note: Received at [facility] 4Admin Note: somewhere else Medications [...] 07/22/18 15:15:12 EDT, Route to Pharmacy Electronically, [id number], [facility]/pharmacy #0373 Start Date: 07/22/18 [...] 07/22/18 15:11:49 EDT, Route to Pharmacy Electronically, [id number], [facility]/pharmacy #0373 Start Date: 07/22/18 Status: Orderedomeprazole 20 mg oral enteric coated capsule See Instructions, # 90 capsule, TAKE 1 CAPSULE BY MOUTH EVERY DAY, [facility]/pharmacy #0373 Start Date: 11/28/18 Status: OrderedtraZODone 50 mg oral tablet 50 mg, 1, tablet, By Mouth, Daily at bedtime, # 30 tablet, Refills 5, Tot. Refills 5, Maintenance, 07/22/18 15:12:55 EDT, Route to Pharmacy Electronically, [id number], [facility] Start Date: 07/22/18 Status: Ordered Problem [...]
--- OUTSIDE RECORDS SUMMARY | 2022-02-10 10:00 | XMS_ITS | Continuity of Care Document ---
:1935 Author Organization [facility] Address [address] [place] [address]- Care Team Providers Name Role Phone Clarita Godoy MD Primary Care Physician Encounter [facility] Date(s): 06/14/20 - 06/21/20 [facility] [address] [place] [address]- Attending Physician: Clarita Godoy MD Allergies, Adverse [...] 1Result Comment: [facility]# [id number] Comment: [11/23/2016] [id number] Note: Received at [facility] 4Admin Note: somewhere else Medications Altace 10 mg oral capsule 1 capsule = 10 mg, By Mouth, Daily, # 90 capsule, 3 Refills, Maintenance, 07/28/19 16:54:00 EDT, Capsule, [facility]/pharmacy #0373, 176, cm, 01/17/19 10:25:00 EST, Height Start Date: 07/28/19 Status: OrderedAmbien 5 mg oral tablet 1 tablet = 5 mg, By Mouth, Daily at bedtime, PRN for sleep, Fill on or after 07/07/19, # 30 tablet, 2Refills, Maintenance, 08/04/19 16:21:00 EDT, Tablet, [facility], 176, cm, 01/17/19 10:25:00 EST, [...] 07/28/19 16:56:00 EDT, Route to Pharmacy Electronically, [facility]/pharmacy #0373, 176, cm, 01/17/19 10:25:00 EST, Height Start Date: 07/28/19 Status: OrderedCrestor 20 mg oral tablet 1 tablet = 20 mg, By Mouth, Daily, # 90 tablet, 3 Refills, Maintenance, 07/28/19 16:55:00 EDT, Tablet, [facility], 176, cm, 01/17/19 10:25:00 EST, Height Start Date: 07/28/19 Status: Orderedmetoprolol 25 mg oral tablet, extended release 25 mg, 1, tablet, By Mouth, Daily, # 90 tablet, Refills 3, Tot. Refills 3, Maintenance, 07/28/19 16:55:00 EDT, Route to Pharmacy Electronically, [facility]/pharmacy #0373, 176, cm, 01/17/19 10:25:00 EST, Height Start Date: 07/28/19 Status: OrderedMiraLax oral powder for reconstitution See Instructions, 17 Gm By Mouth if no BM for 2 days dissolve in water or juice, # 255 Gm, 0 Refills, Acute 11/26/20 8:42:00 EDT, 11/27/19 8:41:00 EDT, REC Powder, [facility]/pharmacy #0373, 17 Gm By Mouth ifno BM for 2 days; dissolve in water or juice, 17... Start Date: 11/27/19 Stop Date: 11/26/20 Status: Orderedomeprazole 20 mg oral enteric coated capsule See Instructions, TAKE 1 CAPSULE BY MOUTH EVERY DAY, # 90 capsule, 3 Refills, Maintenance, [facility] [id number], 176, cm, 01/17/19 10:25:00 EST, Height Start Date: 07/28/19 Status: Orderedomeprazole 20 mg oral enteric coated capsule 1 capsule = 20 mg, By Mouth, Daily, # 90 capsule, 3 Refills, Soft Stop, 07/28/19 16:54:00 EDT, [facility]/pharmacy #0373, 176, cm, 01/17/19 10:25:00 EST, Height Start Date: 07/28/19 Status: OrderedtraZODone 50 mg oral tablet See Instructions, TAKE 1 TABLET BY MOUTH EVERYDAY AT BEDTIME, # 90 each, Refills 3, Tot. Refills 3, 03/19/20 14:38:00 EST, Instructions Replace Required Details, Route to Pharmacy Electronically, [facility]/pharmacy #0373, 176, cm, 03/19/20 13:53:00 EST, Height [...] Active Hypercholesterolemia(Confirmed) Active Hypertension(Confirmed) Active Insomnia(Confirmed) Active [place] - Myocardial infarction(Confirmed) Active Nephrolithiasis(Confirmed) Active Placement of stents in coronary Active artery(Confirmed) Pneumonia(Confirmed) Active Vital Signs Most recent to oldest [Reference Range]: 1 Height 176 cm (06/14/20 1:58 PM) Social History Social History Type Response Smoking Status Never smoker; Tobacco user i n household: No entered on: 06/30/14 Sex
--- OUTSIDE RECORDS SUMMARY | 2022-02-10 10:00 | XMS_ITS | Continuity of Care Document ---
:1935 Author Organization [facility] Address [address] [place], [place] [id number]- Care Team Providers Name Role Phone Clarita Godoy MD Primary Care Physician Encounter [facility] Date(s): 03/03/21 - 03/10/21 [facility] [address] [place] [address]- Attending Physician: Clarita Godoy MD Allergies, Adverse Reactions, Alerts No Known Allergies [...] Pneumococcal Vaccine (oldterm) 01/14/07 Given 1Result Comment: [facility]# [id number] Comment: [11/23/2016] [id number] Note: Received at [facility] 4Admin Note: somewhere else Medications amoxicillin 250 mg [...] 07/02/20 11:24:00 EDT, Route to Pharmacy Electronically, [facility], 176, cm, 06/14/20 13:58:00 EDT, Height Start [...] 3 Refills, Soft Stop, 07/28/19 16:54:00 EDT, [facility]/pharmacy #0373, 176, cm, 01/17/19 10:25:00 EST, Height Start Date: 07/28/19 Status: Orderedramipril 10 mg oral capsule 1 capsule, By Mouth, Daily, # 90 capsule, 3 Refills, Maintenance, 07/02/20 11:21:00 EDT, [facility], 176, cm, 06/14/20 13:58:00 EDT, Height Start Date: 07/02/20 Status: Orderedrosuvastatin 20 mg oral tablet 1 tablet, By Mouth, Daily, # 90 tablet, 3 Refills, Maintenance, 09/08/20 16:43:00 EDT, [facility], 176, cm, 06/14/20 13:58:00 EDT, Height Start Date: 09/08/20 Status: OrderedtraZODone 50 mg oral tablet See Instructions, TAKE 1 TABLET BY MOUTH EVERYDAY AT BEDTIME, # 90 each, Refills 3, Tot. Refills 3, 03/19/20 14:38:00 EST, Instructions Replace Required Details, Route to Pharmacy Electronically, [facility]/pharmacy #0373, 176, cm, 03/19/20 13:53:00 EST, Height [...] oldest [Reference Range]: 1 Height 176 cm (03/03/21 1:38 PM) Oxygen Saturation [94-100 %] 96 % (03/03/21 1:38 PM) Pulse Rate [55-90 bpm] 74 bpm (03/03/21 1:38 PM) Blood Pressure [90-138/55-84 mm Hg] 118/64 mm Hg (03/03/21 1:38 PM) Temperature [96.8-100.4 DegF] 97.8 DegF (03/03/21 1:38 PM) Liters per Minute 0 L/min (03/03/21 1:38 PM) Mode of Delivery (Oxygen) Room air (03/03/21 1:38 PM) Blood pressure sites Arm, right (03/03/21 1:38 PM) Temperature Route Temporal (03/03/21 1:38 PM) Social History Social History Type Response Smoking Status Never smoker; Tobacco user i n household: No entered on: 06/30/14 Sex
--- OUTSIDE RECORDS SUMMARY | 2022-02-10 10:00 | XMS_ITS | Continuity of Care Document ---
:1935 Author Organization [facility] Address [address] [place] [address]- Care Team Providers Name Role Phone Clarita Godoy MD Primary Care Physician Encounter [facility] Date(s): 04/22/19 - 08/20/19 [facility] [address] [place] [address]- Attending Physician: Clarita Godoy MD Allergies, Adverse [...] [facility]# [id number] Comment: [11/23/2016] [id number] Note: Received at [facility] 4Admin Note: somewhere else Medications Altace 10 [...] tablet, 2Refills, Maintenance, 08/04/19 16:21:00 EDT, Tablet, [facility]/pharmacy #0373, 176, cm, 01/17/19 10:25:00 EST, Height [...] 07/28/19 16:56:00 EDT, Route to Pharmacy Electronically, [facility]/pharmacy #0373, 176, cm, 01/17/19 10:25:00 EST, Height Start Date: 07/28/19 Status: OrderedCrestor 20 mg oral tablet 1 tablet = 20 mg, By Mouth, Daily, # 90 tablet, 3 Refills, Maintenance, 07/28/19 16:55:00 EDT, Tablet, [facility]/pharmacy #0373, 176, cm, 01/17/19 10:25:00 EST, Height Start Date: 07/28/19 Status: Orderedmetoprolol 25 mg oral tablet, extended release 25 mg, 1, tablet, By Mouth, Daily, # 90 tablet, Refills 3, Tot. Refills 3, Maintenance, 07/28/19 16:55:00 EDT, Route to Pharmacy Electronically, [facility]/pharmacy #0373, 176, cm, 01/17/19 10:25:00 EST, Height Start Date: 07/28/19 Status: Orderedomeprazole 20 mg oral enteric coated capsule See Instructions, TAKE 1 CAPSULE BY MOUTH EVERY DAY, # 90 capsule, 3 Refills, Maintenance, [facility] [id number], 176, cm, 01/17/19 10:25:00 EST, Height Start Date: 07/28/19 Status: Orderedomeprazole 20 mg oral enteric coated capsule 1 capsule = 20 mg, By Mouth, Daily, # 90 capsule, 3 Refills, Soft Stop, 07/28/19 16:54:00 EDT, [facility]/pharmacy #0373, 176, cm, 01/17/19 10:25:00 EST, Height Start Date: 07/28/19 Status: OrderedtraZODone 50 mg oral tablet See Instructions, TAKE 1 TABLET BY MOUTH EVERYDAY AT BEDTIME, # 90 tablet, Refills 1, Maintenance, Instructions Replace Required Details, Route to Pharmacy Electronically, [facility] 97578, 176, cm, 01/17/19 10:25:00 EST, Height Start [...] Active Hypercholesterolemia(Confirmed) Active Hypertension(Confirmed) Active Insomnia(Confirmed) Active [place] - Myocardial infarction(Confirmed) Active Nephrolithiasis(Confirmed) Active Placement of stents in coronary Active artery(Confirmed) Pneumonia(Confirmed) Active Social History Social History Type Response Smoking Status Never smoker; Tobacco user i n household: No entered on: 06/30/14 Sex
--- OUTSIDE RECORDS SUMMARY | 2022-02-10 10:00 | XMS_ITS | Continuity of Care Document ---
:1935 Author Organization [facility] Address [address] [place] [address]- Care Team Providers Name Role Phone Clarita Godoy MD Primary Care Physician Encounter [facility] [id number] Date(s): 12/02/20 - 01/01/21 [facility] [address] [place] [address]- Attending Physician: Ashley Roa Admitting Physician: AdmtrAshley Referring Physician: AdmtrAshley Allergies, Adverse Reactions, Alerts [...] Pneumococcal Vaccine (oldterm) 01/14/07 Given 1Result Comment: [facility]# [id number] Comment: [11/23/2016] [id number] Note: Received at the [facility] 4Admin Note: somewhere else Medications Ambien 5 [...] 07/02/20 11:24:00 EDT, Route to Pharmacy Electronically, [facility], 176, cm, 06/14/20 13:58:00 EDT, Height Start [...] # 90 capsule, 3 Refills, Maintenance, [id number], 176, cm, 01/17/19 10:25:00 EST, Height Start [...] Refills, Maintenance, 07/02/20 11:21:00 EDT, [facility], 176, cm, 06/14/20 13:58:00 EDT, Height Start Date: 07/02/20 Status: Orderedrosuvastatin 20 mg oral tablet 1 tablet, By Mouth, Daily, # 90 tablet, 3 Refills, Maintenance, 09/08/20 16:43:00 EDT, [facility], 176, cm, 06/14/20 13:58:00 EDT, Height Start Date: 09/08/20 Status: OrderedtraZODone 50 mg oral tablet See Instructions, TAKE 1 TABLET BY MOUTH EVERYDAY AT BEDTIME, # 90 each, Refills 3, Tot. Refills 3, 03/19/20 14:38:00 EST, Instructions Replace Required Details, Route to Pharmacy Electronically, [facility]/pharmacy #0373, 176, cm, 03/19/20 13:53:00 EST, Height [...] Active Hypercholesterolemia(Confirmed) Active Hypertension(Confirmed) Active Insomnia(Confirmed) Active [place] - Myocardial infarction(Confirmed) Active Nephrolithiasis(Confirmed) Active Placement of stents in coronary Active artery(Confirmed) Pneumonia(Confirmed) Active Social History Social History Type Response Smoking Status Never smoker; Tobacco user i n household: No entered on: 06/30/14 Sex
--- OUTSIDE RECORDS SUMMARY | 2022-02-10 10:00 | XMS_ITS | Continuity of Care Document ---
:1935 Author Organization [facility] Address [address] [place], [place] [phone]- Care Team Providers Name Role Phone Clarita Godoy MD Primary Care Physician Encounter [facility] Date(s): 02/28/21 - 03/30/21 [facility] [address] [place] [address]- Allergies, Adverse Reactions, Alerts No Known Allergies [...] Pneumococcal Vaccine (oldterm) 01/14/07 Given 1Result Comment: [facility]# [id number] Comment: [11/23/2016] [id number] Note: Received at [facility] 4Ain Note: somewhere else Medications amoxicillin [...] 07/02/20 11:24:00 EDT, Route to Pharmacy Electronically, [facility], 176, cm, 06/14/20 13:58:00 EDT, Height Start [...] 3 Refills, Soft Stop, 07/28/19 16:54:00 EDT, [facility]/pharmacy #0373, 176, cm, 01/17/19 10:25:00 EST, Height Start Date: 07/28/19 Status: Orderedramipril 10 mg oral capsule 1 capsule, By Mouth, Daily, # 90 capsule, 3 Refills, Maintenance, 07/02/20 11:21:00 EDT, [facility], 176, cm, 06/14/20 13:58:00 EDT, Height Start Date: 07/02/20 Status: Orderedrosuvastatin 20 mg oral tablet 1 tablet, By Mouth, Daily, # 90 tablet, 3 Refills, Maintenance, 09/08/20 16:43:00 EDT, [facility], 176, cm, 06/14/20 13:58:00 EDT, Height Start Date: 09/08/20 Status: OrderedtraZODone 50 mg oral tablet See Instructions, TAKE 1 TABLET BY MOUTH EVERYDAY AT BEDTIME, # 90 each, Refills 3, Tot. Refills 3, 03/19/20 14:38:00 EST, Instructions Replace Required Details, Route to Pharmacy Electronically, [facility]/pharmacy #0373, 176, cm, 03/19/20 13:53:00 EST, Height [...] Active Hypercholesterolemia(Confirmed) Active Hypertension(Confirmed) Active Insomnia(Confirmed) Active [place] - Myocardial infarction(Confirmed) Active Nephrolithiasis(Confirmed) Active Placement of stents in coronary Active artery(Confirmed) Pneumonia(Confirmed) Active Social History Social History Type Response Smoking Status Never smoker; Tobacco user i n household: No entered on: 06/30/14 Sex
--- OUTSIDE RECORDS SUMMARY | 2022-02-10 10:00 | XMS_ITS | Continuity of Care Document ---
:1935 Author Organization [facility] [employer] Adult [facility] Address [address] [place] [address]- Care Team Providers Name Role Phone Clarita Godoy MD Primary Care Physician Encounter [facility] [place] Date(s): 02/23/21 - 03/02/21 [facility] [employer] [facility] [address] [place] [address]- Attending Physician: Clarita Godoy MD Allergies, Adverse [...] Vaccine (oldterm) 01/14/07 Given 1Result Comment: [facility]# [id number] Comment: [11/23/2016] [id number] Note: Received at [facility] 4Admin Note: somewhere else Medications Ambien 5 mg oral tablet 1 tablet = 5 mg, By Mouth, Daily at bedtime, PRN for sleep, Fill on or after 07/07/19, # 30 tablet, 2Refills, Maintenance, 08/04/19 16:21:00 EDT, Tablet, [facility]/pharmacy #0373, 176, cm, 01/17/19 10:25:00 EST, [...] 07/02/20 11:24:00 EDT, Route to Pharmacy Electronically, [facility] STORE 35959, 176, cm, 06/14/20 13:58:00 EDT, Height Start [...] # 90 capsule, 3 Refills, Maintenance, [id number], 176, cm, 01/17/19 10:25:00 EST, Height Start Date: 07/28/19 Status: Orderedomeprazole 20 mg oral enteric coated capsule 1 capsule = 20 mg, By Mouth, Daily, # 90 capsule, 3 Refills, Soft Stop, 07/28/19 16:54:00 EDT, [facility]/pharmacy #0373, 176, cm, 01/17/19 10:25:00 EST, Height Start Date: 07/28/19 Status: Orderedramipril 10 mg oral capsule 1 capsule, By Mouth, Daily, # 90 capsule, 3 Refills, Maintenance, 07/02/20 11:21:00 EDT, [facility] STORE 17982, 176, cm, 06/14/20 13:58:00 EDT, Height Start Date: 07/02/20 Status: Orderedrosuvastatin 20 mg oral tablet 1 tablet, By Mouth, Daily, # 90 tablet, 3 Refills, Maintenance, 09/08/20 16:43:00 EDT, [facility] STORE 31927, 176, cm, 06/14/20 13:58:00 EDT, Height Start Date: 09/08/20 Status: OrderedtraZODone 50 mg oral tablet See Instructions, TAKE 1 TABLET BY MOUTH EVERYDAY AT BEDTIME, # 90 each, Refills 3, Tot. Refills 3, 03/19/20 14:38:00 EST, Instructions Replace Required Details, Route to Pharmacy Electronically, [facility]/pharmacy #0373, 176, cm, 03/19/20 13:53:00 EST, [...]
--- OUTSIDE RECORDS SUMMARY | 2022-02-10 10:00 | XMS_ITS | Continuity of Care Document ---
:1935 Author Organization [facility] Adult [facility] Address [address] [place] [address]- Care Team Providers Name Role Phone Clarita Godoy MD Primary Care Physician Encounter [facility] Date(s): 03/09/21 - 04/08/21 [facility] Adult [facility] [address] [place] [address]- Allergies, Adverse Reactions, Alerts No Known Allergies [...] Vaccine (oldterm) 01/14/07 Given 1Result Comment: [facility] [place]# [id number] Comment: [11/23/2016] [id number] Note: Received at [facility] 4Ain Note: somewhere else Medications [...] 07/02/20 11:24:00 EDT, Route to Pharmacy Electronically, [facility] 14876, 176, cm, 06/14/20 13:58:00 EDT, Height Start [...] 3 Refills, Soft Stop, 07/28/19 16:54:00 EDT, [facility]/pharmacy #0373, 176, cm, 01/17/19 10:25:00 EST, Height Start Date: 07/28/19 Status: Orderedramipril 10 mg oral capsule 1 capsule, By Mouth, Daily, # 90 capsule, 3 Refills, Maintenance, 07/02/20 11:21:00 EDT, [facility] STORE 43616, 176, cm, 06/14/20 13:58:00 EDT, Height Start Date: 07/02/20 Status: Orderedrosuvastatin 20 mg oral tablet 1 tablet, By Mouth, Daily, # 90 tablet, 3 Refills, Maintenance, 09/08/20 16:43:00 EDT, [facility]ORE 24488, 176, cm, 06/14/20 13:58:00 EDT, Height Start [...] Active Hypercholesterolemia(Confirmed) Active Hypertension(Confirmed) Active Insomnia(Confirmed) Active [place] - Myocardial infarction(Confirmed) Active Nephrolithiasis(Confirmed) Active Placement of stents in coronary Active artery(Confirmed) Pneumonia(Confirmed) Active Social History Social History Type Response Smoking Status Never smoker; Tobacco user i n household: No entered on: 06/30/14 Sex
--- OUTSIDE RECORDS SUMMARY | 2022-02-10 10:00 | XMS_ITS | Continuity of Care Document ---
:1935 Author Organization [facility] Adult Medicine Address [address] [place], [place] [address]- Care Team Providers Name Role Phone Clarita Godoy MD Primary Care Physician [facility] Date[facility] 05/03/21 - 06/02/21 [facility] Adult Medicine [address] [place] [address]- Allergies, Adverse Reactions, Alerts No Known Allergies [...] 1Result Comment: [facility]# [id number] Comment: [11/23/2016] [id number] Note: Received at [facility] 4Ain Note: somewhere else Medications amoxicillin 250 [...] 07/02/20 11:24:00 EDT, Route to Pharmacy Electronically, [facility] 02951, 176, cm, 06/14/20 13:58:00 EDT, Height Start [...] Soft Stop, 07/28/19 16:54:00 EDT, [facility]/pharmacy #0373, 176, cm, 01/17/19 10:25:00 EST, Height Start Date: 07/28/19 Status: Orderedramipril 10 mg oral capsule 1 capsule, By Mouth, Daily, # 90 capsule, 3 Refills, Maintenance, 07/02/20 11:21:00 EDT, [facility]ORE 87280, 176, cm, 06/14/20 13:58:00 EDT, Height Start Date: 07/02/20 Status: Orderedrosuvastatin 20 mg oral tablet 1 tablet, By Mouth, Daily, # 90 tablet, 3 Refills, Maintenance, 09/08/20 16:43:00 EDT, [facility]ORE 28547, 176, cm, 06/14/20 13:58:00 EDT, Height Start Date: 09/08/20 Status: OrderedtraZODone 50 mg oral tablet See Instructions, TAKE 1 TABLET BY MOUTH EVERYDAY AT BEDTIME, # 90 each, Refills 3, Tot. Refills 3, 03/19/20 14:38:00 EST, Instructions Replace Required Details, Route to Pharmacy Electronically, [facility]/pharmacy #0373, 176, cm, 03/19/20 13:53:00 EST, Height [...] Active Hypercholesterolemia(Confirmed) Active Hypertension(Confirmed) Active Insomnia(Confirmed) Active [place] - Myocardial infarction(Confirmed) Active Nephrolithiasis(Confirmed) Active Placement of stents in coronary Active artery(Confirmed) Pneumonia(Confirmed) Active Social History Social History Type Response Smoking Status Never smoker; Tobacco user i n household: No entered on: 06/30/14 Sex
--- OUTSIDE RECORDS SUMMARY | 2022-02-10 10:00 | XMS_ITS | Continuity of Care Document ---
:1935 Author Organization [facility] [address] [place] [address]- Care Team Providers Name Role Phone Clarita Godoy MD Primary Care Physician Encounter [facility] Date(s): 03/03/19 - 03/13/19 [facility] [address] [place] [address]- [facility] Attending Physician: Admtr, Ashley Admitting Physician: Admtr, Ashley Referring Physician: Admtr, Ar8 Allergies, Adverse Reactions, Alerts Substance Reaction Severity [...] Pneumococcal Vaccine (oldterm) 01/14/07 Given 1Result Comment: [facility]# [id number] Comment: [11/23/2016] [id number] Note: Received at [facility] 4Admin Note: somewhere else Medications [...] 07/22/18 15:15:12 EDT, Route to Pharmacy Electronically, [id number], [facility]/pharmacy #0373 Start Date: 07/22/18 Status: [...] 07/22/18 15:11:49 EDT, Route to Pharmacy Electronically, [id number], [facility]/pharmacy #0373 Start Date: 07/22/18 Status: Orderedomeprazole 20 mg oral enteric coated capsule See Instructions, TAKE 1 CAPSULE BY MOUTH EVERY DAY, # 90 capsule, 0 Refills, Soft Stop, 02/27/19 8:29:00 EST, [facility]/pharmacy #0373, 176, cm, 01/17/19 10:25:00 EST, Height Start Date: 02/27/19 Status: OrderedtraZODone 50 mg oral tablet 50 mg, 1, tablet, By Mouth, Daily at bedtime, # 30 tablet, Refills 5, Tot. Refills 5, Maintenance, 07/22/18 15:12:55 EDT, Route to Pharmacy Electronically, [id number], [facility]/pharmacy #0373 Start Date: 07/22/18 Status: [...] Active Hypercholesterolemia(Confirmed) Active Hypertension(Confirmed) Active Insomnia(Confirmed) Active [place] - Myocardial infarction(Confirmed) Active Nephrolithiasis(Confirmed) Active Placement of stents in coronary Active artery(Confirmed) Pneumonia(Confirmed) Active Social History Social History Type Response Smoking Status Never smoker; Tobacco user i n household: No entered on: 06/30/14 Sex
--- OUTSIDE RECORDS SUMMARY | 2022-02-10 10:00 | XMS_ITS | Continuity of Care Document ---
:1935 Author Organization [facility] Adult Medicine Address [address] [place], [place] [address]- Care Team Providers Name Role Phone Clarita Godoy MD Primary Care Physician Encounter [facility] Date(s): 04/01/21 - 05/01/21 [facility] Adult [facility] [address] [place] [address]- Allergies, Adverse Reactions, Alerts No Known Allergies [...] 1Result Comment: [facility]# [id number] Comment: [11/23/2016] [id number] Note: Received at [facility] 4Ain Note: somewhere else Medications amoxicillin [...] 07/02/20 11:24:00 EDT, Route to Pharmacy Electronically, [facility] 26[facility], 176, cm, 06/14/20 13:58:00 EDT, Height Start [...] 3 Refills, Soft Stop, 07/28/19 16:54:00 EDT, [facility]/pharmacy #0373, 176, cm, 01/17/19 10:25:00 EST, Height Start Date: 07/28/19 Status: Orderedramipril 10 mg oral capsule 1 capsule, By Mouth, Daily, # 90 capsule, 3 Refills, Maintenance, 07/02/20 11:21:00 EDT, [facility] 54110, 176, cm, 06/14/20 13:58:00 EDT, Height Start Date: 07/02/20 Status: Orderedrosuvastatin 20 mg oral tablet 1 tablet, By Mouth, Daily, # 90 tablet, 3 Refills, Maintenance, 09/08/20 16:43:00 EDT, [facility] 99057, 176, cm, 06/14/20 13:58:00 EDT, Height Start [...] Active Hypercholesterolemia(Confirmed) Active Hypertension(Confirmed) Active Insomnia(Confirmed) Active [place] - Myocardial infarction(Confirmed) Active Nephrolithiasis(Confirmed) Active Placement of stents in coronary Active artery(Confirmed) Pneumonia(Confirmed) Active Social History Social History Type Response Smoking Status Never smoker; Tobacco user i n household: No entered on: 06/30/14 Sex
--- OUTSIDE RECORDS SUMMARY | 2022-02-10 10:00 | XMS_ITS | Continuity of Care Document ---
:1935 Author Organization [facility] [employer] [facility] Address [address] [place], [place] [address]- Care Team Providers Name Role Phone Clarita Godoy MD Primary Care Physician Encounter [facility] Date(s): 11/12/20 - 12/12/20 [facility] [address] [place] [address]- Allergies, Adverse Reactions, Alerts Substance Reaction Severity [...] Pneumococcal Vaccine (oldterm) 01/14/07 Given 1Result Comment: [facility]# [id number] Comment: [11/23/2016] [id number] Note: Received at the [place] 4Admin Note: somewhere else Medications Ambien 5 mg oral tablet 1 tablet = 5 mg, By Mouth, Daily at bedtime, PRN for sleep, Fill on or after 07/07/19, # 30 tablet, 2Refills, Maintenance, 08/04/19 16:21:00 EDT, Tablet, [facility]/pharmacy #0373, 176, cm, 01/17/19 [...] EDT, Route to Pharmacy Electronically, [facility], 176, cm, 06/14/20 13:58:00 EDT, Height Start [...] # 90 capsule, 3 Refills, Maintenance, [id number], 176, cm, 01/17/19 10:25:00 EST, Height Start Date: 07/28/19 Status: Orderedomeprazole 20 mg oral enteric coated capsule 1 capsule = 20 mg, By Mouth, Daily, # 90 capsule, 3 Refills, Soft Stop, 07/28/19 16:54:00 EDT, [facility]/pharmacy #0373, 176, cm, 01/17/19 10:25:00 EST, Height Start Date: 07/28/19 Status: Orderedramipril 10 mg oral capsule 1 capsule, By Mouth, Daily, # 90 capsule, 3 Refills, Maintenance, 07/02/20 11:21:00 EDT, [facility], 176, cm, 06/14/20 13:58:00 EDT, Height Start Date: 07/02/20 Status: Orderedrosuvastatin 20 mg oral tablet 1 tablet, By Mouth, Daily, # 90 tablet, 3 Refills, Maintenance, 09/08/20 16:43:00 EDT, [facility] STORE 53001, 176, cm, 06/14/20 13:58:00 EDT, Height Start Date: 09/08/20 Status: OrderedtraZODone 50 mg oral tablet See Instructions, TAKE 1 TABLET BY MOUTH EVERYDAY AT BEDTIME, # 90 each, Refills 3, Tot. Refills 3, 03/19/20 14:38:00 EST, Instructions Replace Required Details, Route to Pharmacy Electronically, [facility]/pharmacy #0373, 176, cm, 03/19/20 13:53:00 EST, [...] Active Hypercholesterolemia(Confirmed) Active Hypertension(Confirmed) Active Insomnia(Confirmed) Active [place] - Myocardial infarction(Confirmed) Active Nephrolithiasis(Confirmed) Active Placement of stents in coronary Active artery(Confirmed) Pneumonia(Confirmed) Active Social History Social History Type Response Smoking Status Never smoker; Tobacco user i n household: No entered on: 06/30/14 Sex
--- OUTSIDE RECORDS SUMMARY | 2022-02-10 10:00 | XMS_ITS | Continuity of Care Document ---
:1935 Author Organization [facility] [employer] Adult [facility] Address [address] [place], [place] [address]- Care Team Providers Name Role Phone Clarita Godoy MD Primary Care Physician [id number] Date(s): 03/07/21 - 04/06/21 [facility] [employer] [facility] [address] [place] [address]- Attending Physician: Ashley Roa Admitting Physician: Ashley Roa Referring Physician: AdmtrAshley Allergies, Adverse Reactions, Alerts No Known Allergies [...] Pneumococcal Vaccine (oldterm) 01/14/07 Given 1Result Comment: [facility]# [id number] Comment: [11/23/2016] [id number] Note: Received at the [facility] 4Admin Note: somewhere else Medications amoxicillin 250 [...] 07/02/20 11:24:00 EDT, Route to Pharmacy Electronically, [facility] 17350, 176, cm, 06/14/20 13:58:00 EDT, Height Start [...] capsule, 3 Refills, Maintenance, 07/02/20 11:21:00 EDT, [facility] 40708, 176, cm, 06/14/20 13:58:00 EDT, Height Start Date: 07/02/20 Status: Orderedrosuvastatin 20 mg oral tablet 1 tablet, By Mouth, Daily, # 90 tablet, 3 Refills, Maintenance, 09/08/20 16:43:00 EDT, [facility] 02991, 176, cm, 06/14/20 13:58:00 EDT, Height Start Date: 09/08/20 Status: OrderedtraZODone 50 mg oral tablet See Instructions, TAKE 1 TABLET BY MOUTH EVERYDAY AT BEDTIME, # 90 each, Refills 3, Tot. Refills 3, 03/19/20 14:38:00 EST, Instructions Replace Required Details, Route to Pharmacy Electronically, [facility]/pharmacy #0373, 176, cm, 03/19/20 13:53:00 EST, [...]
--- OUTSIDE RECORDS SUMMARY | 2022-02-10 10:00 | XMS_ITS | Continuity of Care Document ---
:1935 Author Organization [employer] [facility] Address [address] [place] [address]- Care Team Providers Name Role Phone Clarita Godoy MD Primary Care Physician Encounter [facility] Date(s): 07/28/19 - 08/27/19 [facility] [employer] [address] [place] [address]- Attending Physician: Ashley Roa Admitting Physician: AdmtrAshley Referring Physician: Admtr, Ar8 Allergies, Adverse Reactions, [...] Given 1Result Comment: [facility]# [id number] Comment: [11/23/2016] [id number] Note: Received at [facility] 4Admin Note: somewhere else Medications Altace [...] tablet, 2Refills, Maintenance, 08/04/19 16:21:00 EDT, Tablet, [facility]/pharmacy #0373, 176, cm, 01/17/19 10:25:00 EST, Height [...] 07/28/19 16:56:00 EDT, Route to Pharmacy Electronically, [facility]/pharmacy #0373, 176, cm, 01/17/19 10:25:00 EST, Height Start Date: 07/28/19 Status: OrderedCrestor 20 mg oral tablet 1 tablet = 20 mg, By Mouth, Daily, # 90 tablet, 3 Refills, Maintenance, 07/28/19 16:55:00 EDT, Tablet, [facility]/pharmacy #0373, 176, cm, 01/17/19 10:25:00 EST, Height Start Date: 07/28/19 Status: Orderedmetoprolol 25 mg oral tablet, extended release 25 mg, 1, tablet, By Mouth, Daily, # 90 tablet, Refills 3, Tot. Refills 3, Maintenance, 07/28/19 16:55:00 EDT, Route to Pharmacy Electronically, [facility]/pharmacy #0373, 176, cm, 01/17/19 10:25:00 EST, Height Start Date: 07/28/19 Status: Orderedomeprazole 20 mg oral enteric coated capsule See Instructions, TAKE 1 CAPSULE BY MOUTH EVERY DAY, # 90 capsule, 3 Refills, Maintenance, [facility] [id number], 176, cm, 01/17/19 10:25:00 EST, Height Start Date: 07/28/19 Status: Orderedomeprazole 20 mg oral enteric coated capsule 1 capsule = 20 mg, By Mouth, Daily, # 90 capsule, 3 Refills, Soft Stop, 07/28/19 16:54:00 EDT, [facility]/pharmacy #0373, 176, cm, 01/17/19 10:25:00 EST, Height Start Date: 07/28/19 Status: OrderedtraZODone 50 mg oral tablet See Instructions, TAKE 1 TABLET BY MOUTH EVERYDAY AT BEDTIME, # 90 tablet, Refills 1, Maintenance, Instructions Replace Required Details, Route to Pharmacy Electronically, [facility] 50075, 176, cm, 01/17/19 10:25:00 EST, Height Start [...] Active Hypercholesterolemia(Confirmed) Active Hypertension(Confirmed) Active Insomnia(Confirmed) Active [place] - Myocardial infarction(Confirmed) Active Nephrolithiasis(Confirmed) Active Placement of stents in coronary Active artery(Confirmed) Pneumonia(Confirmed) Active Social History Social History Type Response Smoking Status Never smoker; Tobacco user i n household: No entered on: 06/30/14 Sex
--- OUTSIDE RECORDS SUMMARY | 2022-02-10 10:00 | XMS_ITS | Continuity of Care Document ---
:1935 Author Organization [facility] [employer] Adult [facility] Address [address] [place], [place] [address]- Care Team Providers Name Role Phone Clarita Godoy MD Primary Care Physician Encounter [facility] Date(s): 10/21/20 - 01/01/21 [facility] [address] [place] [address]- Attending Physician: Clarita Godoy MD Allergies, Adverse [...] Vaccine (oldterm) 01/14/07 Given 1Result Comment: [facility]# [id number] Comment: [11/23/2016] [id number] Note: Received at the [facility] 4Admin Note: somewhere else Medications Ambien 5 mg oral tablet 1 tablet = 5 mg, By Mouth, Daily at bedtime, PRN for sleep, Fill on or after 07/07/19, # 30 tablet, 2Refills, Maintenance, 08/04/19 16:21:00 EDT, Tablet, [facility]/pharmacy #0373, 176, cm, 01/17/19 [...] 07/02/20 11:24:00 EDT, Route to Pharmacy Electronically, [facility] STORE 64681, 176, cm, 06/14/20 13:58:00 EDT, Height Start [...] DAY, # 90 capsule, 3 Refills, Maintenance, [facility] [id number], 176, cm, 01/17/19 10:25:00 EST, Height Start Date: 07/28/19 Status: Orderedomeprazole 20 mg oral enteric coated capsule 1 capsule = 20 mg, By Mouth, Daily, # 90 capsule, 3 Refills, Soft Stop, 07/28/19 16:54:00 EDT, [facility]/pharmacy #0373, 176, cm, 01/17/19 10:25:00 EST, Height Start Date: 07/28/19 Status: Orderedramipril 10 mg oral capsule 1 capsule, By Mouth, Daily, # 90 capsule, 3 Refills, Maintenance, 07/02/20 11:21:00 EDT, [facility], 176, cm, 06/14/20 13:58:00 EDT, Height Start Date: 07/02/20 Status: Orderedrosuvastatin 20 mg oral tablet 1 tablet, By Mouth, Daily, # 90 tablet, 3 Refills, Maintenance, 09/08/20 16:43:00 EDT, [facility], 176, cm, 06/14/20 13:58:00 EDT, Height Start Date: 09/08/20 Status: OrderedtraZODone 50 mg oral tablet See Instructions, TAKE 1 TABLET BY MOUTH EVERYDAY AT BEDTIME, # 90 each, Refills 3, Tot. Refills 3, 03/19/20 14:38:00 EST, Instructions Replace Required Details, Route to Pharmacy Electronically, [facility]/pharmacy #0373, 176, cm, 03/19/20 [...] Active Hypercholesterolemia(Confirmed) Active Hypertension(Confirmed) Active Insomnia(Confirmed) Active [place] - Myocardial infarction(Confirmed) Active Nephrolithiasis(Confirmed) Active Placement of stents in coronary Active artery(Confirmed) Pneumonia(Confirmed) Active Social History Social History Type Response Smoking Status Never smoker; Tobacco user i n household: No entered on: 06/30/14 Sex
--- OUTSIDE RECORDS SUMMARY | 2022-02-10 10:00 | XMS_ITS | Continuity of Care Document ---
:[address] [facility] Address [address] [place] [address] Care Team Providers Name Role Phone Jayne PATEL, Clarita Lieberman Primary Care Physician Encounter [facility] Date(s): 03/19/20 - [facility] [address] [place] [address]- Attending Physician: Ashley Roa Admitting Physician: Ashley [...] Given 1Result Comment: [facility]# [id number] Comment: [11/23/2016] [id number] Note: Received at [facility] 4Admin Note: somewhere else Medications Altace 10 mg oral capsule 1 capsule = 10 mg, By Mouth, Daily, # 90 capsule, 3 Refills, Maintenance, 07/28/19 16:54:00 EDT, Capsule, [facility]/pharmacy #0373, 176, cm, 01/17/19 10:25:00 EST, Height Start Date: 07/28/19 Status: OrderedAmbien 5 mg oral tablet 1 tablet = 5 mg, By Mouth, Daily at bedtime, PRN for sleep, Fill on or after 07/07/19, # 30 tablet, 2Refills, Maintenance, 08/04/19 16:21:00 EDT, Tablet, [facility]/pharmacy #0373, 176, cm, 01/17/19 [...] 07/28/19 16:56:00 EDT, Route to Pharmacy Electronically, [facility]/pharmacy #0373, 176, cm, 01/17/19 10:25:00 EST, Height Start Date: 07/28/19 Status: OrderedCrestor 20 mg oral tablet 1 tablet = 20 mg, By Mouth, Daily, # 90 tablet, 3 Refills, Maintenance, 07/28/19 16:55:00 EDT, Tablet, [facility]/pharmacy #0373, 176, cm, 01/17/19 10:25:00 EST, Height Start Date: 07/28/19 Status: Orderedmetoprolol 25 mg oral tablet, extended release 25 mg, 1, tablet, By Mouth, Daily, # 90 tablet, Refills 3, Tot. Refills 3, Maintenance, 07/28/19 16:55:00 EDT, Route to Pharmacy Electronically, [facility]/pharmacy #0373, 176, cm, 01/17/19 10:25:00 EST, Height Start Date: 07/28/19 Status: OrderedMiraLax oral powder for reconstitution See Instructions, 17 Gm By Mouth if no BM for 2 days dissolve in water or juice, # 255 Gm, 0 Refills, Acute 11/26/20 8:42:00 EDT, 11/27/19 8:41:00 EDT, REC Powder, [facility]/pharmacy #0373, 17 Gm By Mouth ifno BM for 2 days; dissolve in water or juice, 17... Start Date: 11/27/19 Stop Date: 11/26/20 Status: Orderedomeprazole 20 mg oral enteric coated capsule See Instructions, TAKE 1 CAPSULE BY MOUTH EVERY DAY, # 90 capsule, 3 Refills, Maintenance, [facility] [id number], 176, cm, 01/17/19 10:25:00 EST, Height Start Date: 07/28/19 Status: Orderedomeprazole 20 mg oral enteric coated capsule 1 capsule = 20 mg, By Mouth, Daily, # 90 capsule, 3 Refills, Soft Stop, 07/28/19 16:54:00 EDT, [facility]/pharmacy #0373, 176, cm, 01/17/19 10:25:00 EST, Height Start Date: 07/28/19 Status: OrderedtraZODone 50 mg oral tablet See Instructions, TAKE 1 TABLET BY MOUTH EVERYDAY AT BEDTIME, # 90 each, Refills 3, Tot. Refills 3, 03/19/20 14:38:00 EST, Instructions Replace Required Details, Route to Pharmacy Electronically, [facility]/pharmacy #0373, 176, cm, 03/19/20 [...] Active Hypercholesterolemia(Confirmed) Active Hypertension(Confirmed) Active Insomnia(Confirmed) Active [place] - Myocardial infarction(Confirmed) Active Nephrolithiasis(Confirmed) Active Placement of stents in coronary Active artery(Confirmed) Pneumonia(Confirmed) Active Social History Social History Type Response Smoking Status Never smoker; Tobacco user i n household: No entered on: 06/30/14 Sex
--- OUTSIDE RECORDS SUMMARY | 2022-02-10 10:00 | XMS_ITS | Continuity of Care Document ---
:1935 Author Organization [facility] Address [address] [place], [place] [id number]- Care Team Providers Name Role Phone Clarita Godoy MD Primary Care Physician Encounter [facility] Date(s): 10/29/20 - [facility] [address] [place] [address]- Allergies, Adverse Reactions, Alerts Substance Reaction Severity [...] (oldterm) 01/14/07 Given 1Result Comment: [facility]# [id number] Comment: [11/23/2016] [id number] Note: Received at the [place] 4Admin Note: somewhere else Medications Ambien 5 mg oral tablet 1 tablet = 5 mg, By Mouth, Daily at bedtime, PRN for sleep, Fill on or after 07/07/19, # 30 tablet, 2Refills, Maintenance, 08/04/19 16:21:00 EDT, Tablet, [facility]/pharmacy #[id number], 176, cm, 01/17/19 [...] EDT, Route to Pharmacy Electronically, [id number], 176, cm, 06/14/20 13:58:00 EDT, Height Start [...] # 90 capsule, 3 Refills, Maintenance, [id number], 176, cm, 01/17/19 10:25:00 EST, Height Start Date: 07/28/19 Status: Orderedomeprazole 20 mg oral enteric coated capsule 1 capsule = 20 mg, By Mouth, Daily, # 90 capsule, 3 Refills, Soft Stop, 07/28/19 16:54:00 EDT, [facility]/pharmacy #[id number], 176, cm, 01/17/19 10:25:00 EST, Height Start Date: 07/28/19 Status: Orderedramipril 10 mg oral capsule 1 capsule, By Mouth, Daily, # 90 capsule, 3 Refills, Maintenance, 07/02/20 11:21:00 EDT, [id number], 176, cm, 06/14/20 13:58:00 EDT, Height Start Date: 07/02/20 Status: Orderedrosuvastatin 20 mg oral tablet 1 tablet, By Mouth, Daily, # 90 tablet, 3 Refills, Maintenance, 09/08/20 16:43:00 EDT, [id number], 176, cm, 06/14/20 13:58:00 EDT, Height Start Date: 09/08/20 Status: OrderedtraZODone 50 mg oral tablet See Instructions, TAKE 1 TABLET BY MOUTH EVERYDAY AT BEDTIME, # 90 each, Refills 3, Tot. Refills 3, 03/19/20 14:38:00 EST, Instructions Replace Required Details, Route to Pharmacy Electronically, [facility]/pharmacy #[id number], 176, cm, 03/19/20 [...]
--- OUTSIDE RECORDS SUMMARY | 2022-02-10 10:01 | XMS_ITS | Continuity of Care Document ---
:1935 Author Organization [employer] [facility] Address [address] [place] [address]- Care Team Providers Name Role Phone Clarita Godoy MD Primary Care Physician Encounter [facility] Date(s): 10/10/19 - 11/09/19 [facility] [address] [place] [id number]- Allergies, Adverse Reactions, Alerts Substance Reaction Severity [...] Vaccine (oldterm) 01/14/07 Given 1Result Comment: [facility]# [id number] Comment: [11/23/2016] [id number] Note: Received at [facility] 4Admin Note: somewhere else Medications Altace [...] tablet, 2Refills, Maintenance, 08/04/19 16:21:00 EDT, [id number], cm, 01/17/19 10:25:00 EST, Height [...] 07/28/19 16:56:00 EDT, [id number], 176, cm, 01/17/19 10:25:00 EST, Height Start Date: 07/28/19 Status: OrderedCrestor 20 mg oral tablet 1 tablet = 20 mg, By Mouth, Daily, # 90 tablet, 3 Refills, Maintenance, 07/28/19 16:55:00 EDT, [id number], 176, cm, 01/17/19 10:25:00 EST, Height Start Date: 07/28/19 Status: Orderedmetoprolol 25 mg oral tablet, extended release 25 mg, 1, tablet, By Mouth, Daily, # 90 tablet, Refills 3, Tot. Refills 3, Maintenance, 07/28/19 16:55:00 EDT, [id number], 176, cm, 01/17/19 10:25:00 EST, Height Start Date: 07/28/19 Status: Orderedomeprazole 20 mg oral enteric coated capsule See Instructions, TAKE 1 CAPSULE BY MOUTH EVERY DAY, # 90 capsule, 3 Refills, Maintenance, [facility] [id number], 176, cm, 01/17/19 10:25:00 EST, Height Start Date: 07/28/19 Status: Orderedomeprazole 20 mg oral enteric coated capsule 1 capsule = 20 mg, By Mouth, Daily, # 90 capsule, 3 Refills, Soft Stop, 07/28/19 16:54:00 EDT, [facility]/pharmacy #[id number], 176, cm, 01/17/19 10:25:00 EST, Height Start Date: 07/28/19 Status: OrderedtraZODone 50 mg oral tablet See Instructions, TAKE 1 TABLET BY MOUTH EVERYDAY AT BEDTIME, # 90 tablet, Refills 1, Tot. Refills 1, 10/10/19 15:18:00 EDT, Instructions Replace Required Details, [id number], 176, cm, 01/17/19 10:25:00 EST, H... Start Date: 10/10/19 Status: Ordered Problem List Condition Effective Dates [...] Active Hypercholesterolemia(Confirmed) Active Hypertension(Confirmed) Active Insomnia(Confirmed) Active [place] - Myocardial infarction(Confirmed) Active Nephrolithiasis(Confirmed) Active Placement of stents in coronary Active artery(Confirmed) Pneumonia(Confirmed) Active Social History Social History Type Response Smoking Status Never smoker; Tobacco user i n household: No entered on: 06/30/14 Sex
--- OUTSIDE RECORDS SUMMARY | 2022-02-10 10:01 | XMS_ITS | Continuity of Care Document ---
:1935 Author Organization [facility] Address [address] [place] [phone] Care Team Providers Name Role Phone Clarita Godoy MD Primary Care Physician Encounter [facility] Date(s): 10/21/20 - 10/28/20 [facility] [address] [place] [phone]- Attending Physician: Leopoldo Gibson Allergies, Adverse Reactions, Alerts Substance Reaction Severity [...] Pneumococcal Vaccine (oldterm) 01/14/07 Given 1Result Comment: [facility]# [id number] Comment: [11/23/2016] [id number] Note: Received at [facility] 4Admin Note: somewhere else Medications Ambien 5 mg oral tablet 1 tablet = 5 mg, By Mouth, Daily at bedtime, PRN for sleep, Fill on or after 07/07/19, # 30 tablet, 2Refills, Maintenance, 08/04/19 16:21:00 EDT, Tablet, [facility]/pharmacy #[id number], 176, cm, 01/17/19 10:25:00 EST, [...] EDT, Route to Pharmacy Electronically, [id number], 176, cm, 06/14/20 13:58:00 EDT, Height Start Date: 07/02/20 Status: OrderedMetoprolol Succinate ER 25 mg oral tablet, extended release 1 tablet, By Mouth, Daily, # 90 tablet, 0 Refills, Maintenance, 08/05/20 12:03:00 EDT, [facility], 176, cm, 06/14/20 13:58:00 EDT, Height Start Date: 08/05/20 Status: OrderedMiraLax oral powder for reconstitution See Instructions, 17 Gm By Mouth if no BM for 2 days dissolve in water or juice, # 255 Gm, 0 Refills, Acute 11/26/20 8:42:00 EDT, 11/27/19 8:41:00 EDT, REC Powder, [facility]/pharmacy #[id number], 17 Gm By Mouth ifno BM for 2 days; dissolve in water or juice, 17... Start Date: 11/27/19 Stop Date: 11/26/20 Status: Orderedomeprazole 20 mg oral enteric coated capsule See Instructions, TAKE 1 CAPSULE BY MOUTH EVERY DAY, # 90 capsule, 3 Refills, Maintenance, [id number], 176, cm, 01/17/19 10:25:00 EST, Height Start Date: 07/28/19 Status: Orderedomeprazole 20 mg oral enteric coated capsule 1 capsule = 20 mg, By Mouth, Daily, # 90 capsule, 3 Refills, Soft Stop, 07/28/19 16:54:00 EDT, [facility]/pharmacy #[id number], 176, cm, 01/17/19 10:25:00 EST, Height Start Date: 07/28/19 Status: Orderedramipril 10 mg oral capsule 1 capsule, By Mouth, Daily, # 90 capsule, 3 Refills, Maintenance, 07/02/20 11:21:00 EDT, [id number], 176, cm, 06/14/20 13:58:00 EDT, Height Start Date: 07/02/20 Status: Orderedrosuvastatin 20 mg oral tablet 1 tablet, By Mouth, Daily, # 90 tablet, 3 Refills, Maintenance, 09/08/20 16:43:00 EDT, [facility], 176, cm, 06/14/20 13:58:00 EDT, Height Start Date: 09/08/20 Status: OrderedtraZODone 50 mg oral tablet See Instructions, TAKE 1 TABLET BY MOUTH EVERYDAY AT BEDTIME, # 90 each, Refills 3, Tot. Refills 3, 03/19/20 14:38:00 EST, Instructions Replace Required Details, Route to Pharmacy Electronically, [facility]/pharmacy #[id number], 176, cm, 03/19/20 13:53:00 EST, [...] Active Hypercholesterolemia(Confirmed) Active Hypertension(Confirmed) Active Insomnia(Confirmed) Active [place] - Myocardial infarction(Confirmed) Active Nephrolithiasis(Confirmed) Active Placement of stents in coronary Active artery(Confirmed) Pneumonia(Confirmed) Active Vital Signs Most recent to oldest [Reference Range]: 1 Height 176 cm (10/21/20 9:42 AM) Weight 61.4 kg (10/21/20 9:42 AM) Oxygen Saturation [94-100 %] 98 % (10/21/20 9:42 AM) Pulse Rate [55-90 bpm] 76 bpm (10/21/20 9:42 AM) Body Mass Index [18.5-24.99] 19.82 (10/21/20 9:42 AM) Blood Pressure [90-138/55-84 mm Hg] 118/62 mm Hg (10/21/20 9:42 AM) Temperature [96.8-100.4 DegF] 97.8 DegF (10/21/20 9:42 AM) Liters per Minute 0 L/min (10/21/20 9:42 AM) Mode of Delivery (Oxygen) Room air (10/21/20 9:42 AM) Blood pressure sites Arm, left (10/21/20 9:42 AM) Temperature Route Temporal (10/21/20 9:42 AM) Weight Obtained Via Standing scale (10/21/20 9:42 AM) Social History Social History Type Response Smoking Status Never smoker; Tobacco user i n household: No entered on: 06/30/14 Sex
--- OUTSIDE RECORDS SUMMARY | 2022-02-10 10:01 | XMS_ITS | Continuity of Care Document ---
:1935 Author [facility] Address [address] [place], [place] [id number]- Care Team Providers Name Role Phone Clarita Godoy MD Primary Care Physician Encounter [facility] [id number] Date(s): 03/03/21 - 04/06/21 [facility] [address] [place] [address]- Attending Physician: Clarita Godoy MD Allergies, Adverse [...] Pneumococcal Vaccine (oldterm) 01/14/07 Given 1Result Comment: [facility]# [id number] Comment: [11/23/2016] [id number] Note: Received at the [place] 4Admin Note: somewhere else Medications amoxicillin 250 [...] 07/02/20 11:24:00 EDT, Route to Pharmacy Electronically, [id number], 176, cm, 06/14/20 13:58:00 EDT, Height Start [...] Refills, Soft Stop, 07/28/19 16:54:00 EDT, [facility]/pharmacy #[id number], 176, cm, 01/17/19 10:25:00 EST, Height Start Date: 07/28/19 Status: Orderedramipril 10 mg oral capsule 1 capsule, By Mouth, Daily, # 90 capsule, 3 Refills, Maintenance, 07/02/20 11:21:00 EDT, [facility], 176, cm, 06/14/20 13:58:00 EDT, Height Start Date: 07/02/20 Status: Orderedrosuvastatin 20 mg oral tablet 1 tablet, By Mouth, Daily, # 90 tablet, 3 Refills, Maintenance, 09/08/20 16:43:00 EDT, [facility], 176, cm, 06/14/20 13:58:00 EDT, Height Start Date: 09/08/20 Status: OrderedtraZODone 50 mg oral tablet See Instructions, TAKE 1 TABLET BY MOUTH EVERYDAY AT BEDTIME, # 90 each, Refills 3, Tot. Refills 3, 03/19/20 14:38:00 EST, Instructions Replace Required Details, Route to Pharmacy Electronically, [facility]/pharmacy #[id number], 176, cm, 03/19/20 13:53:00 EST, [...] Active Hypercholesterolemia(Confirmed) Active Hypertension(Confirmed) Active Insomnia(Confirmed) Active [place] - Myocardial infarction(Confirmed) Active Nephrolithiasis(Confirmed) Active Placement of stents in coronary Active artery(Confirmed) Pneumonia(Confirmed) Active Social History Social History Type Response Smoking Status Never smoker; Tobacco user i n household: No entered on: 06/30/14 Sex
[2022-02-10] MEDS: Lidocaine 4 % Cream KIT 1 APPL TOPICAL (11:20)
[2022-02-10] MEDS: Diphth,Pertus(ACell),Tet Adult 0.5 ML SYRINGE IM (12:27)
== END 2022-02-10 12:29 | disposition home or self-care (01) ==
PROVIDERS: Emergency Provider Emergency Medicine; PCP Family Medicine
DX: S01.01XA Laceration without foreign body of scalp, initial encounter (principal); S20.319A Abrasion of unspecified front wall of thorax, initial encounter; R51.9 Headache, unspecified; M54.2 Cervicalgia; W01.10XA Fall on same level from slipping, tripping and stumbling with subsequent striking against unspecified object, initial encounter; Y93.9 Activity, unspecified; Y92.9 Unspecified place or not applicable; Y99.9 Unspecified external cause status; Z79.899 Other long term (current) drug therapy; Z23 Encounter for immunization
CPT/HCPCS: 12002; 70450; 72125; 90471; 90715; 99283; 99284

== ENCOUNTER 2022-05-02 14:10 | Inpatient (IN) | payer MEDICARE, OTHER, SELFPAY ==
--- NOTE | ~2022-05-02 | CT_ITS ---
EXAMINATION: CT head/brain wo IV con CLINICAL INFORMATION: Reason for Exam ams COMPARISON: CT head without contrast 02/10/2022 TECHNIQUE: Contiguous axial imaging was performed from the skull base to vertex without intravenous contrast. Sagittal and coronal reformatted images were obtained. This CT examination was performed using dose optimization techniques as appropriate, variously including the following: * Automated exposure control * Adjustment of mA and/or kV according to patient size (this includes techniques or standardized protocols for targeted exams where dose is matched to indication/reason for exam; i.e. extremities or head) Use of iterative reconstruction technique DLP: 666 mGy-cm FINDINGS: No acute osseous or soft tissue abnormality. The mastoid air cells and visualized portions of the paranasal sinuses are well aerated. There is no evidence of acute intracranial hemorrhage or territorial infarction. No abnormal mass effect or midline shift is seen. Rodriguez to white matter differentiation is well preserved. No extra-axial fluid collections are identified. No hydrocephalus. Proportional prominence of the ventricles and sulcal spaces is consistent with moderate volume loss. Patchy periventricular and deep white matter hypoattenuation is consistent with moderate small vessel ischemic changes. CT/CT head/brain wo IV con IMPRESSION: No acute intracranial abnormality including hemorrhage, mass effect, hydrocephalus, or acute territorial edematous infarction.
--- NOTE | ~2022-05-02 | CT_ITS ---
EXAMINATION: CT ANGIOGRAM CHEST WITH AND WITHOUT CONTRAST (CT PULMONARY ANGIOGRAM FOR PE) CLINICAL INFORMATION: Shortness of breath. Altered mental status. COMPARISON: Most recent chest radiograph dated 09/01/[address] abdomen/pelvis dated 09/11/2013. TECHNIQUE: Prior to contrast administration, noncontrast localization images were obtained. Subsequently, multidetector volumetric imaging was performed from the thoracic inlet to below the diaphragms following the administration of 65 mL Omnipaque 350 intravenous contrast. No contrast reaction reported. Sagittal, coronal, and MIP oblique sagittal reformatted images were obtained on the CT workstation, uploaded to PACS, and reviewed. This CT examination was performed using dose optimization techniques as appropriate, variously including the following: *Automated exposure control. *Adjustment of mA and/or kV according to patient size (this includes techniques or standardized protocols for targeted exams where dose is matched to indication/reason for exam; i.e. extremities or head). *Use of iterative reconstruction technique. Total exam dose-length product 303 mGy-cm. FINDINGS: QUALITY OF STUDY/CONTRAST BOLUS: Satisfactory. PULMONARY ARTERIES: No central or segmental pulmonary emboli. THORACIC AORTA: No aneurysm or dissection. LUNG: Icvc-[id number] emphysematous changes. A 0.4 cm calcific granuloma within the right upper lobe. Patchy, reticular nodular densities within the posterior right lower lobe as well as to a lesser degree within the adjacent posterior aspect of the right upper lobe. Minimal, similar findings within the left lower lobe. Findings could represent a multifocal infectious or inflammatory process. Small bilateral pulmonary nodules, the most prominent measuring up to 0.5 x 0.4 cm within the right upper lobe (axial image 257/610). The central airways are patent. PLEURA: No pleural effusion or pneumothorax. MEDIASTINUM: Normal heart size. No pericardial effusion. No hilar or mediastinal lymphadenopathy. No evidence of septal bowing or right heart strain. CORONARY ARTERY CALCIFICATION: Present. CHEST WALL/AXILLA: No axillary or internal mammary lymphadenopathy. OSSEOUS STRUCTURES: Age-indeterminate compression deformity of T11. No concerning lytic or blastic osseous lesion. UPPER ABDOMEN: Cholelithiasis. The visualized upper abdominal structures are otherwise unremarkable. Reflux of contrast into the hepatic veins which could indicate elevated right heart pressures. CT/CT angio chest PE protocol IMPRESSION: 1. No central or segmental pulmonary embolism. 2. Patchy, reticular nodular densities within the posterior aspect of the right lower lobe as well as to a lesser degree within the posterior aspect of the right upper lobe. Minimal, similar findings within the left lower lobe. Findings could represent a multifocal infectious or inflammatory process. 3. Small bilateral pulmonary nodules measuring up to 0.5 cm within the right upper lobe. According to the UPDATED 2017 Fleischner Society recommendations, the advised follow-up imaging for solid nodules < 6 mm is: LOW RISK PATIENT: No routine follow-up. HIGH RISK PATIENT: Optional CT at 12 months. 4. Reflux of contrast into the hepatic veins which could indicate elevated right heart pressures. 5. Age-indeterminate compression deformity of T11. VTE: Negative.
--- NOTE | 2022-05-02 14:38 | ED.GENADULT ---
HPI - General Adult General Chief complaint: Weakness <MICA Zheng - Last Filed: 05/02/22 15:15> Stated complaint: Dehydrated <MICA Zheng - Last Filed: 05/02/22 15:15> Time Seen by Provider: 05/02/22 17:49 <MICA Zheng - Last Filed: 05/02/22 15:15> Source: patient and family (Daughter) <MICA Henriquez Last Filed: 05/02/22 21:54> Mode of arrival: ambulatory <MICA Henriquez - Last Filed: 05/02/22 21:54> Limitations: other (Patient has history of dementia) <MICA Henriquez Last Filed: 05/02/22 21:54> History of Present Illness HPI narrative: This is an 87-year-old male presenting to the emergency department with daughter is concerned that her father is dehydrated secondary to poor p.o. intake. Father has not been eating and drinking as he usually does for the past few days, almost a week. She mentioned this to patient's primary care provider who advised him to come in for IV fluids. Daughter also reports that she noted that patient has had a few episodes of loose stool however no recent antibiotic use. According to daughter patient just has not been acting himself extremely weak and ?lethargic?.. No recent sick contacts. No recent travel. Patient poor historian unable to provide me a history review of systems majority of history per obtained from daughter. <MICA Henriquez Last Filed: 05/02/22 21:54> Related Data Allergies/adverse reactions: Allergies Allergy/AdvReac Type Severity Reaction Status Date / Time No Known Allergies Allergy Unverified 10/23/19 15:18 [No Known Allergies*] <MICA Zheng Last Filed: 05/02/22 15:15> Review of Systems Review of Systems: Yes Unobtainable due to mental status <MICA Henriquez Last Filed: 05/02/22 21:54> PMFSH Past Medical History Attestation statement: The following information was validated with the patient. <MICA Henriquez Last Filed: 05/02/22 21:54> Source: old records reviewed and nursing notes reviewed <MICA Henriquez - Last Filed: 05/02/22 21:54> Social History Social History: Social History Advance Directives: No Advance Directives Information Provided: Yes <MICA Zheng - Last Filed: 05/02/22 15:15> Physical Exam ED Vital Signs: Vital Signs - 24 hr 05/02/22 14:40 05/02/22 17:50 05/02/22 20:45 Temperature 98.0 F 98.7 F Pulse Rate 67 59 105 H Respiratory Rate 18 18 18 Blood Pressure 132/51 L 133/61 131/62 Pulse Oximetry 99 92 95 Oxygen Delivery Method Room Air Room Air Room Air BMI result Body Mass Index 23.7 <MICA Zhneg - Last Filed: 05/02/22 15:15> Vital Signs - 24 hr 05/02/22 14:40 05/02/22 17:50 05/02/22 20:45 Temperature 98.0 F 98.7 F Pulse Rate 67 59 105 H Respiratory Rate 18 18 18 Blood Pressure 132/51 L 133/61 131/62 Pulse Oximetry 99 92 95 Oxygen Delivery Method Room Air Room Air Room Air BMI result Body Mass Index 23.7 vss <MICA Henriquez - Last Filed: 05/02/22 21:54> Appearance: Patient lethargic. Not answering my questions. No acute distress.? Head: Normocephalic, atraumatic, no step-offs or deformities Eyes: Pupils equal, round and reactive to light.? Neck: Normal inspection.? Neck supple.? CVS: Normal heart rate and rhythm.? Pulses normal.? Respiratory: No respiratory distress.? Breath sounds with diminished breath sounds bilaterally and crackles to right lower lobe..? Abdomen: Soft and nontender.? Skin: Skin warm and dry.? Normal skin color.? Normal skin turgor.? Extremities: No lower extremity edema.? No calf ttp. Global weakness. + bilateral distal aspects of finger tips appear to have a blue issue/discoloration concerning for cyanosis. 2+ radial pulses equal bilateral. Bilateral upper extremities warm, with soft compartments with normal sensation. Back: No midline tenderness, no C-spine tenderness, full range of motion, no CVA tenderness bilaterally Neuro: Patient lethargic, not answering my questions. Sleeping. Opens eyes intermittently. According to daughter this is not his baseline <MICA Henriquez - Last Filed: 05/02/22 21:54> Course Course Course Narrative: BENJIE-14:40PM - 87yoM with a PMHx of Dementia who is presenting to the ER with daughter at bedside with concerns for dehydration due to decreased p.o. intake with solids and liquids in general weakness/fatigue for the past 3 days. Reports that he has an appointment with primary care provider coming up although primary care provider wanted him to come here to have some IV fluids. She reports he has had some loose stools. He is not having any fevers, chest pain or shortness of breath, cough, vomiting or any abdominal pain or any other symptoms complaints or concerns at this time. Patient is noted to have some cyanosis to the fingertips although his finger tips are warm. His oxygen saturation obtained by his ear due to unable to obtain by the fingertips was 98% on room air. Plan: Will obtain basic labs, chest x-ray an EKG patient to be sent back to the waiting room to be evaluated in the ED. 15:15pm - patient daughter refusing chest x-ray was also refusing labs reports that she thinks he only needs IV fluids due to he is going to his doctor's appointment on Sunday. I explained to her that we will not only give IV fluids we will need to obtain labs to evaluate why the patient is weak and has decreased p.o. intake. <MICA Zheng - Last Filed: 05/02/22 15:15> Reevaluation(s) Reevaluation #1: Patient's CBC within normal limits. Chemistry with slightly elevated BUN likely secondary to dehydration. Patient has a negative lactic acid. BNP within normal limits. Troponin elevated 90.4, EKG nonischemic however will obtain a 2nd troponin at 21:00 3 hours after initial. Flu/COVID/RSV negative. <MICA Henriquez - Last Filed: 05/02/22 21:54> Time: 20:11 <MICA Henriquez - Last Filed: 05/02/22 21:54> Reevaluation #2: Initial troponin 90.4, EKG nonischemic, repeat 75.2 unlikely that this is ACS. No signs of CHF, BNP 95 no signs of fluid overload on exam. Patient now coughing, CTA showing pneumonia will get covered with ceftriaxone. Will reach out to hospitalist for admission <MICA Henriquez - Last Filed: 05/02/22 21:54> Time: 21:51 <MICA Henriquez - Last Filed: 05/02/22 21:54> Medications Administered Discontinued Medications Generic Name Dose Route Start Last Admin Trade Name Freq PRN Reason Stop Dose Admin Sodium Chloride 1,000 mls @ 999 mls/hr 05/02/22 20:00 05/02/22 20:10 Ns IV 05/02/22 21:00 999 mls/hr .Q1H1M TYRONE Administration Iohexol 100 ml 05/02/22 19:21 05/02/22 19:21 Iohexol 350 Mg/Ml 100 Ml Infus..Btl IV 05/02/22 19:22 65 ml ONCE ONE Administration <MICA Zheng - Last Filed: 05/02/22 15:15> Medications Administered Discontinued Medications Generic Name Dose Route Start Last Admin Trade Name Freq PRN Reason Stop Dose Admin Sodium Chloride 1,000 mls @ 999 mls/hr 05/02/22 20:00 05/02/22 20:10 Ns IV 05/02/22 21:00 999 mls/hr .Q1H1M TYRONE Administration Iohexol 100 ml 05/02/22 19:21 05/02/22 19:21 Iohexol 350 Mg/Ml 100 Ml Infus..Btl IV 05/02/22 19:22 65 ml ONCE ONE Administration <MICA Henriquez - Last Filed: 05/02/22 21:54> Medical Decision Making Medical Decision Making [facility] Narrative: 1753 87-year-old male presenting for evaluation of possible dehydration daughter advised to come in by PCP. Daughter reports significant weakness. Physical exam significant for global weakness and No lower extremity edema.? No calf ttp. Global weakness. There is diminished breath sounds bilaterally and crackles to right lower lobe + bilateral distal aspects of finger tips appear to have a blue issue/discoloration concerning for cyanosis. 2+ radial pulses equal bilateral. Bilateral upper extremities warm, with soft compartments with normal sensation. Patient with history of dementia unable to obtain an accurate NIH stroke scale. Patient is noted to be 90-92% on room air no history of COPD. Concerns for possible dehydration secondary to poor p.o. intake, will rule out electrolyte abnormalities, UTI. Patient's oxygen saturation 90-92% will rule out PE, PNA CHF, ACS. Low suspicion for stroke, posterior stroke, intracranial hemorrhage. Plan labs, imaging, urine. <MICA Henriquez - Last Filed: 05/02/22 21:54> Differential Diagnosis Differential Diagnoses: The differential diagnosis associated with the presentation includes <MICA Henriquez - Last Filed: 05/02/22 21:54> Concerns for possible dehydration secondary to poor p.o. intake, will rule out electrolyte abnormalities, UTI. Patient's oxygen saturation 90-92% will rule out PE, PNA, CHF, ACS. Low suspicion for stroke, posterior stroke, intracranial hemorrhage. <MICA Henriquez - Last Filed: 05/02/22 21:54> Admission/Observation Consideration of admission/observation: Escalation of care including admission/observation considered <MICA Henriquez - Last Filed: 05/02/22 21:54> Lab Data MDM Lab Attestation statement: I reviewed the patient's lab results. <MICA Henriquez - Last Filed: 05/02/22 21:54> Result Diagrams: 05/02/22 15:08 05/02/22 15:08 <MICA Zheng - Last Filed: 05/02/22 15:15> Labs: Lab Results 05/02/22 05/02/22 05/02/22 Range/Units 15:08 15:08 15:08 WBC 10.4 (4.8-10.8) X10*3/uL RBC 4.55 L D (4.60-5.80) X10*6/uL Hgb 14.3 D (14.0-18.0) g/dl Hct 43.4 D (42.0-52.0) % MCV 95.4 (80.0-98.0) fL MCH 31.4 (27.0-33.0) pg MCHC 32.9 (31.0-36.0) g/dl RDW 14.0 (11.0-16.0) % Plt Count 294 (160-400) X10*3/uL MPV 9.6 (9.4-12.4) fL Immature Gran % (Auto) 0.4 (0.0-0.4) % Neut % (Auto) 75.3 H (45-73) % Lymph % (Auto) 14.7 L (20-40) % Sevier % (Auto) 9.2 (2-11) % Eos % (Auto) 0.2 (0-4) % Baso % (Auto) 0.2 (0-2) % Lymph # (Auto) 1.5 (1.2-4.9) X10*3/uL [place]vier # (Auto) 1.0 (0.1-1.2) X10*3/uL Eos # (Auto) 0.0 (0.0-0.4) X10*3/uL Baso # (Auto) 0.0 (0.0-0.2) X10*3/uL Abs Immat Gran (auto) 0.04 H (0.00-0.03) X10*3/uL Absolute Neuts (auto) 7.8 (2.0-8.3) x10*3/uL Absolute Nucleated RBC 0.000 (0.0-0.012) X10*3/uL Nucleated RBC % (auto) 0.0 (0.0-0.2) /100WBC PT 14.4 H (10.0-13.1) SEC INR 1.2 H (0.9-1.1) Sodium 141 (135-145) mmol/L Potassium 4.6 (3.3-5.1) mmol/L Chloride 104 (96-108) mmol/L Carbon Dioxide 29 (22-29) mmol/L Anion Gap 13 (12-20) BUN 27 H (9-16) mg/dL Creatinine 1.19 (0.5-1.4) mg/dL Estim Creat Clear Calc 45.7 Estimated GFR 58 Random Glucose 106 (60-115) mg/dL Lactic Acid (0.5-2.0) mmol/L Calcium 9.1 (8.4-10.2) mg/dL Magnesium 2.2 (1.6-2.6) mg/dL Total Bilirubin 0.8 (0.0-1.0) mg/dL AST 41 H (5-37) U/L ALT 28 (0-40) U/L Alkaline Phosphatase 135 H (39-117) U/L Troponin I High Sens (<3.5-35.0) ng/L B-Natriuretic Peptide (<100) pg/mL Total Protein 7.1 (6.5-8.0) g/dL Albumin 3.3 L (3.5-5.0) g/dL Lipase 9 (8-78) U/L Influenza Type A (PCR) (Negative) Influenza Type B (PCR) (Negative) RSV RNA Qual (PCR) (Negative) SARS-CoV-2 RNA (RT-PCR) (Negative) 05/02/22 05/02/22 05/02/22 Range/Units 15:08 18:38 18:38 WBC (4.8-10.8) X10*3/uL RBC (4.60-5.80) X10*6/uL Hgb (14.0-18.0) g/dl Hct (42.0-52.0) % MCV (80.0-98.0) fL MCH (27.0-33.0) pg MCHC (31.0-36.0) g/dl RDW (11.0-16.0) % Plt Count (160-400) X10*3/uL MPV (9.4-12.4) fL Immature Gran % (Auto) (0.0-0.4) % Neut % (Auto) (45-73) % Lymph % (Auto) (20-40) % Sevier % (Auto) (2-11) % Eos % (Auto) (0-4) % Baso % (Auto) (0-2) % Lymph # (Auto) (1.2-4.9) X10*3/uL Sevier # (Auto) (0.1-1.2) X10*3/uL Eos # (Auto) (0.0-0.4) X10*3/uL Baso # (Auto) (0.0-0.2) X10*3/uL Abs Immat Gran (auto) (0.00-0.03) X10*3/uL Absolute Neuts (auto) (2.0-8.3) x10*3/uL Absolute Nucleated RBC (0.0-0.012) X10*3/uL Nucleated RBC % (auto) (0.0-0.2) /100WBC PT (10.0-13.1) SEC INR (0.9-1.1) Sodium (135-145) mmol/L Potassium (3.3-5.1) mmol/L Chloride (96-108) mmol/L Carbon Dioxide (22-29) mmol/L Anion Gap (12-20) BUN (9-16) mg/dL Creatinine (0.5-1.4) mg/dL Estim Creat Clear Calc Estimated GFR Random Glucose (60-115) mg/dL Lactic Acid (0.5-2.0) mmol/L Calcium (8.4-10.2) mg/dL Magnesium (1.6-2.6) mg/dL Total Bilirubin (0.0-1.0) mg/dL AST (5-37) U/L ALT (0-40) U/L Alkaline Phosphatase (39-117) U/L Troponin I High Sens 90.4 H (<3.5-35.0) ng/L B-Natriuretic Peptide 95 (<100) pg/mL Total Protein (6.5-8.0) g/dL Albumin (3.5-5.0) g/dL Lipase (8-78) U/L Influenza Type A (PCR) NEGATIVE (Negative) Influenza Type B (PCR) NEGATIVE (Negative) RSV RNA Qual (PCR) NEGATIVE (Negative) SARS-CoV-2 RNA (RT-PCR) NEGATIVE (Negative) 05/02/22 05/02/22 Range/Units 18:38 20:37 WBC (4.8-10.8) X10*3/uL RBC (4.60-5.80) X10*6/uL Hgb (14.0-18.0) g/dl Hct (42.0-52.0) % MCV (80.0-98.0) fL MCH (27.0-33.0) pg MCHC (31.0-36.0) g/dl RDW (11.0-16.0) % Plt Count (160-400) X10*3/uL MPV (9.4-12.4) fL Immature Gran % (Auto) (0.0-0.4) % Neut % (Auto) (45-73) % Lymph % (Auto) (20-40) % Sevier % (Auto) (2-11) % Eos % (Auto) (0-4) % Baso % (Auto) (0-2) % Lymph # (Auto) (1.2-4.9) X10*3/uL Sevier # (Auto) (0.1-1.2) X10*3/uL Eos # (Auto) (0.0-0.4) X10*3/uL Baso # (Auto) (0.0-0.2) X10*3/uL Abs Immat Gran (auto) (0.00-0.03) X10*3/uL Absolute Neuts (auto) (2.0-8.3) x10*3/uL Absolute Nucleated RBC (0.0-0.012) X10*3/uL Nucleated RBC % (auto) (0.0-0.2) /100WBC PT (10.0-13.1) SEC INR (0.9-1.1) Sodium (135-145) mmol/L Potassium (3.3-5.1) mmol/L Chloride (96-108) mmol/L Carbon Dioxide (22-29) mmol/L Anion Gap (12-20) BUN (9-16) mg/dL Creatinine (0.5-1.4) mg/dL Estim Creat Clear Calc Estimated GFR Random Glucose (60-115) mg/dL Lactic Acid 1.7 (0.5-2.0) mmol/L Calcium (8.4-10.2) mg/dL Magnesium (1.6-2.6) mg/dL Total Bilirubin (0.0-1.0) mg/dL AST (5-37) U/L ALT (0-40) U/L Alkaline Phosphatase (39-117) U/L Troponin I High Sens 75.2 H (<3.5-35.0) ng/L B-Natriuretic Peptide (<100) pg/mL Total Protein (6.5-8.0) g/dL Albumin (3.5-5.0) g/dL Lipase (8-78) U/L Influenza Type A (PCR) (Negative) Influenza Type B (PCR) (Negative) RSV RNA Qual (PCR) (Negative) SARS-CoV-2 RNA (RT-PCR) (Negative) <MICA Zheng - Last Filed: 05/02/22 15:15> Lab Results 05/02/22 05/02/22 05/02/22 Range/Units 15:08 15:08 15:08 WBC 10.4 (4.8-10.8) X10*3/uL RBC 4.55 L D (4.60-5.80) X10*6/uL Hgb 14.3 D (14.0-18.0) g/dl Hct 43.4 D (42.0-52.0) % MCV 95.4 (80.0-98.0) fL MCH 31.4 (27.0-33.0) pg MCHC 32.9 (31.0-36.0) g/dl RDW 14.0 (11.0-16.0) % Plt Count 294 (160-400) X10*3/uL MPV 9.6 (9.4-12.4) fL Immature Gran % (Auto) 0.4 (0.0-0.4) % Neut % (Auto) 75.3 H (45-73) % Lymph % (Auto) 14.7 L (20-40) % Sevier % (Auto) 9.2 (2-11) % Eos % (Auto) 0.2 (0-4) % Baso % (Auto) 0.2 (0-2) % Lymph # (Auto) 1.5 (1.2-4.9) X10*3/uL Sevier # (Auto) 1.0 (0.1-1.2) X10*3/uL Eos # (Auto) 0.0 (0.0-0.4) X10*3/uL Baso # (Auto) 0.0 (0.0-0.2) X10*3/uL Abs Immat Gran (auto) 0.04 H (0.00-0.03) X10*3/uL Absolute Neuts (auto) 7.8 (2.0-8.3) x10*3/uL Absolute Nucleated RBC 0.000 (0.0-0.012) X10*3/uL Nucleated RBC % (auto) 0.0 (0.0-0.2) /100WBC PT 14.4 H (10.0-13.1) SEC INR 1.2 H (0.9-1.1) Sodium 141 (135-145) mmol/L Potassium 4.6 (3.3-5.1) mmol/L Chloride 104 (96-108) mmol/L Carbon Dioxide 29 (22-29) mmol/L Anion Gap 13 (12-20) BUN 27 H (9-16) mg/dL Creatinine 1.19 (0.5-1.4) mg/dL Estim Creat Clear Calc 45.7 Estimated GFR 58 Random Glucose 106 (60-115) mg/dL Lactic Acid (0.5-2.0) mmol/L Calcium 9.1 (8.4-10.2) mg/dL Magnesium 2.2 (1.6-2.6) mg/dL Total Bilirubin 0.8 (0.0-1.0) mg/dL AST 41 H (5-37) U/L ALT 28 (0-40) U/L Alkaline Phosphatase 135 H (39-117) U/L Troponin I High Sens (<3.5-35.0) ng/L B-Natriuretic Peptide (<100) pg/mL Total Protein 7.1 (6.5-8.0) g/dL Albumin 3.3 L (3.5-5.0) g/dL Lipase 9 (8-78) U/L Influenza Type A (PCR) (Negative) Influenza Type B (PCR) (Negative) RSV RNA Qual (PCR) (Negative) SARS-CoV-2 RNA (RT-PCR) (Negative) 05/02/22 05/02/22 05/02/22 Range/Units 15:08 18:38 18:38 WBC (4.8-10.8) X10*3/uL RBC (4.60-5.80) X10*6/uL Hgb (14.0-18.0) g/dl Hct (42.0-52.0) % MCV (80.0-98.0) fL MCH (27.0-33.0) pg MCHC (31.0-36.0) g/dl RDW (11.0-16.0) % Plt Count (160-400) X10*3/uL MPV (9.4-12.4) fL Immature Gran % (Auto) (0.0-0.4) % Neut % (Auto) (45-73) % Lymph % (Auto) (20-40) % Sevier % (Auto) (2-11) % Eos % (Auto) (0-4) % Baso % (Auto) (0-2) % Lymph # (Auto) (1.2-4.9) X10*3/uL Sevier # (Auto) (0.1-1.2) X10*3/uL Eos # (Auto) (0.0-0.4) X10*3/uL Baso # (Auto) (0.0-0.2) X10*3/uL Abs Immat Gran (auto) (0.00-0.03) X10*3/uL Absolute Neuts (auto) (2.0-8.3) x10*3/uL Absolute Nucleated RBC (0.0-0.012) X10*3/uL Nucleated RBC % (auto) (0.0-0.2) /100WBC PT (10.0-13.1) SEC INR (0.9-1.1) Sodium (135-145) mmol/L Potassium (3.3-5.1) mmol/L Chloride (96-108) mmol/L Carbon Dioxide (22-29) mmol/L Anion Gap (12-20) BUN (9-16) mg/dL Creatinine (0.5-1.4) mg/dL Estim Creat Clear Calc Estimated GFR Random Glucose (60-115) mg/dL Lactic Acid (0.5-2.0) mmol/L Calcium (8.4-10.2) mg/dL Magnesium (1.6-2.6) mg/dL Total Bilirubin (0.0-1.0) mg/dL AST (5-37) U/L ALT (0-40) U/L Alkaline Phosphatase (39-117) U/L Troponin I High Sens 90.4 H (<3.5-35.0) ng/L B-Natriuretic Peptide 95 (<100) pg/mL Total Protein (6.5-8.0) g/dL Albumin (3.5-5.0) g/dL Lipase (8-78) U/L Influenza Type A (PCR) NEGATIVE (Negative) Influenza Type B (PCR) NEGATIVE (Negative) RSV RNA Qual (PCR) NEGATIVE (Negative) SARS-CoV-2 RNA (RT-PCR) NEGATIVE (Negative) 05/02/22 05/02/22 Range/Units 18:38 20:37 WBC (4.8-10.8) X10*3/uL RBC (4.60-5.80) X10*6/uL Hgb (14.0-18.0) g/dl Hct (42.0-52.0) % MCV (80.0-98.0) fL MCH (27.0-33.0) pg MCHC (31.0-36.0) g/dl RDW (11.0-16.0) % Plt Count (160-400) X10*3/uL MPV (9.4-12.4) fL Immature Gran % (Auto) (0.0-0.4) % Neut % (Auto) (45-73) % Lymph % (Auto) (20-40) % Sevier % (Auto) (2-11) % Eos % (Auto) (0-4) % Baso % (Auto) (0-2) % Lymph # (Auto) (1.2-4.9) X10*3/uL Sevier # (Auto) (0.1-1.2) X10*3/uL Eos # (Auto) (0.0-0.4) X10*3/uL Baso # (Auto) (0.0-0.2) X10*3/uL Abs Immat Gran (auto) (0.00-0.03) X10*3/uL Absolute Neuts (auto) (2.0-8.3) x10*3/uL Absolute Nucleated RBC (0.0-0.012) X10*3/uL Nucleated RBC % (auto) (0.0-0.2) /100WBC PT (10.0-13.1) SEC INR (0.9-1.1) Sodium (135-145) mmol/L Potassium (3.3-5.1) mmol/L Chloride (96-108) mmol/L Carbon Dioxide (22-29) mmol/L Anion Gap (12-20) BUN (9-16) mg/dL Creatinine (0.5-1.4) mg/dL Estim Creat Clear Calc Estimated GFR Random Glucose (60-115) mg/dL Lactic Acid 1.7 (0.5-2.0) mmol/L Calcium (8.4-10.2) mg/dL Magnesium (1.6-2.6) mg/dL Total Bilirubin (0.0-1.0) mg/dL AST (5-37) U/L ALT (0-40) U/L Alkaline Phosphatase (39-117) U/L Troponin I High Sens 75.2 H (<3.5-35.0) ng/L B-Natriuretic Peptide (<100) pg/mL Total Protein (6.5-8.0) g/dL Albumin (3.5-5.0) g/dL Lipase (8-78) U/L Influenza Type A (PCR) (Negative) Influenza Type B (PCR) (Negative) RSV RNA Qual (PCR) (Negative) SARS-CoV-2 RNA (RT-PCR) (Negative) <MICA Henriquez - Last Filed: 05/02/22 21:54> Independent Interpretation I performed an independent interpretation of an: CT Scan <MICA Henriquez - Last Filed: 05/02/22 21:54> Radiology Impression Discussion of test interpretation with radiology: I have reviewed the radiologist's reading. <MICA Henriquez - Last Filed: 05/02/22 21:54> Core Measures AMI core measures followed: Yes <MICA Henriquez Last Filed: 05/02/22 21:54> Measure exclusions: not indicated <MICA Henriquez Last Filed: 05/02/22 21:54> Critical Care Time Critical Care Time Critical Care Time: No <MICA Henriquez Last Filed: 05/02/22 21:54> Discharge Plan Discharge Clinical Impression: Dehydration, Pneumonia, Weakness, Altered mental status <MICA Zheng - Last Filed: 05/02/22 15:15> Patient Disposition: Admitted As Inpatient <MICA Zheng - Last Filed: 05/02/22 15:15>
[2022-05-02 14:40] VITALS: BP 132/51; PULSE 67; RESP 18; TEMP 36.7; O2SAT 99; BMI 23.7
--- NOTE | 2022-05-02 14:44 | ECG_ITS ---
Test Reason : WEAKNESS Blood Pressure : / mmHG Vent. Rate : 085 BPM Atrial Rate : 000 BPM P-R Int : 000 ms QRS Dur : 082 ms QT Int : 374 ms P-R-T Axes : 000 064 023 degrees QTc Int : 445 ms Atrial fibrillation with premature ventricular or aberrantly conducted complexes Abnormal ECG When compared with ECG of 11-APR-2021 06:57, No significant change was found Referred By: Kimberly Luna Electronically Signed By:BRYN DOMINGUEZ
[2022-05-02 15:21] LABS: MANUAL DIFF FLAG NO
[2022-05-02 15:29] LABS: Basophils Percent Auto 0.2 % (0-2); Eosinophils Percent Auto 0.2 % (0-4); Hematocrit 43.4 % (42.0-52.0); Hemoglobin 14.3 g/dl (14.0-18.0); Imm Gran Abs Auto 0.04 X10*3/uL (0.00-0.03); Imm Gran Pct Auto 0.4 % (0.0-0.4); Lymphocytes Absolute Auto 1.5 X10*3/uL (1.2-4.9); Lymphocytes Percent Auto 14.7 % (20-40); Mean Corpuscular HGB Conc 32.9 g/dl (31.0-36.0); Mean Corpuscular Hemoglobin 31.4 pg (27.0-33.0); Mean Corpuscular Volume 95.4 fL (80.0-98.0); Mean Platelet Volume 9.6 fL (9.4-12.4); Monocytes Percent Auto 9.2 % (2-11); Neutrophils Absolute Auto 7.8 x10*3/uL (2.0-8.3); Neutrophils Percent Auto 75.3 % (45-73); Platelet Count 294 X10*3/uL (160-400); Red Blood Count 4.55 X10*6/uL (4.60-5.80); White Blood Count 10.4 X10*3/uL (4.8-10.8)
[2022-05-02 15:31] LABS: INTERNATIONAL NORM RATIO 1.2 (0.9-1.1); Prothrombin Time 14.4 SEC (10.0-13.1)
[2022-05-02 15:39] LABS: Alanine Aminotransferase 28 U/L (0-40); Albumin Level 3.3 g/dL (3.5-5.0); Alkaline Phosphatase 135 U/L (39-117); Anion Gap 13 (12-20); Aspartate Amino Transferase 41 U/L (5-37); Bilirubin Total 0.8 mg/dL (0.0-1.0); Blood Urea Nitrogen 27 mg/dL (9-16); Calcium 9.1 mg/dL (8.4-10.2); Carbon Dioxide 29 mmol/L (22-29); Chloride 104 mmol/L (96-108); Creatinine Clr Calc Pharmacy 45.7; Estimated Glomerular Filt Rate 58; Glucose Random 106 mg/dL (60-115); Lipase 9 U/L (8-78); Magnesium 2.2 mg/dL (1.6-2.6); Potassium 4.6 mmol/L (3.3-5.1); Sodium 141 mmol/L (135-145); Total Protein 7.1 g/dL (6.5-8.0)
[2022-05-02 16:02] LABS: Influenza A PCR NEGATIVE (Negative); Influenza B PCR NEGATIVE (Negative); Resp Syncy Virus RNA Qual PCR NEGATIVE (Negative); SARS COV2 PCR INHOUSE NEGATIVE (Negative)
[2022-05-02 17:50] VITALS: BP 133/61; PULSE 59; RESP 18; O2SAT 92
[2022-05-02 18:59] LABS: Lactic Acid 1.7 mmol/L (0.5-2.0)
[2022-05-02 19:08] LABS: Troponin-I High Sensitivity 90.4 ng/L (<3.5-35.0)
[2022-05-02] MEDS: iohexoL 350 MG/ML 100 ML INFUS..BTL IV (19:21)
[2022-05-02 19:28] LABS: B Type Natriuretic Peptide 95 pg/mL (<100)
[2022-05-02] MEDS: 0.9 % Sodium Chloride 1,000 ML 999 ML IV (20:10)
--- NOTE | 2022-05-02 20:12 | PC.NURSE ---
provider into assess pt, medicated per mar, pt placed on monitor, will continue to monitor.
[2022-05-02 20:45] VITALS: BP 131/62; PULSE 105; RESP 18; TEMP 37.1; O2SAT 95
[2022-05-02 21:11] LABS: Troponin-I High Sensitivity 75.2 ng/L (<3.5-35.0)
--- NOTE | 2022-05-02 21:45 | PC.NURSE ---
family updated on the plan of care by this RN, family requesting provider, provider Rosaline Kendall has given multiple updates with this RN present to Son, Daughter requested provider again for update. Dr Jay and Rosaline KENDALL to review plan of care once again.
[2022-05-02] MEDS: cefTRIAXone sodium 1 GM in 0.9 % Sodium Chloride 50 ML IV (21:57)
--- NOTE | 2022-05-02 22:21 | PC.NURSE ---
pt repositioned, change into hospital attire, [place] placed, notified provider of temp. Will continue monitor.
--- NOTE | 2022-05-02 22:27 | PM.IMHP ---
History of Present Illness Date of Service: 05/02/22 Chief Complaint: Weakness This is a 87-year-old male with pertinent history of essential hypertension, mixed hyperlipidemia, mood disorder who was brought to the emergency department for evaluation of generalized weakness and lethargy. Patient is a poor historian and does not know why he is here. History obtained from ER provider and chart review. Patient has not been eating and drinking for the last few days. He is not himself as per the family. He has been weak and lethargic. Does endorse productive cough. Unable to provide review of systems Review of Systems Review of Systems: Yes Unobtainable due to mental condition and Unobtainable due to mental status PMFSH Pertinent family history: Not significant Social History Current occupational status: [employer] Allergies Allergy/AdvReac Type Severity Reaction Status Date / Time No Known Allergies Allergy Unverified 10/23/19 15:18 [No Known Allergies*] Active Medications: Current Medications Pharmacy Consult (Consult Rx Perform Med Rec) 1 each MISCELLANE ONCE PRN PRN Reason: Consult order Home Medications Medication Instructions Recorded Confirmed Last Taken Type clopidogrel 75 mg tablet 75 mg PO DAILY 05/02/22 Unknown History metoprolol succinate 25 mg 25 mg PO DAILY 05/02/22 Unknown History tablet,extended release 24 hr quetiapine 50 mg tablet 50 mg PO BEDTIME 05/02/22 Unknown History ramipril 10 mg capsule 10 mg PO DAILY 05/02/22 Unknown History rosuvastatin 20 mg tablet 20 mg PO DAILY 05/02/22 Unknown History Physical Exam Vital Signs and Narrative: Vital Signs: Last Vital Signs Temp 98.7 F 05/02/22 20:45 Pulse 105 H 05/02/22 20:45 Resp 18 05/02/22 20:45 BP 131/62 05/02/22 20:45 Pulse Ox 95 05/02/22 20:45 O2 Del Method Room Air 05/02/22 20:45 BMI result Body Mass Index 23.7 Elderly pale lying in bed in no distress Neck supple, no JVD Tachycardic with regular rhythm, S1-S2 heard Right-sided crackles without wheezing Abdomen soft nontender, no guarding, no rigidity Patient is drowsy but awakens to verbal stimulus, oriented to self, disoriented to place, time and person Results Labs 05/02/22 15:08 05/02/22 15:08 Labs: Laboratory Results - last 24 hr 05/02/22 05/02/22 05/02/22 15:08 15:08 15:08 MCV 95.4 MCH 31.4 MCHC 32.9 RDW 14.0 Plt Count 294 MPV 9.6 Immature Gran % (Auto) 0.4 Neut % (Auto) 75.3 H Lymph % (Auto) 14.7 L [place] % (Auto) 9.2 Eos % (Auto) 0.2 Baso % (Auto) 0.2 Lymph # (Auto) 1.5 Woodward # (Auto) 1.0 Eos # (Auto) 0.0 Baso # (Auto) 0.0 Abs Immat Gran (auto) 0.04 H Absolute Neuts (auto) 7.8 Absolute Nucleated RBC 0.000 Nucleated RBC % (auto) 0.0 PT 14.4 H INR 1.2 H Anion Gap 13 Estim Creat Clear Calc 45.7 Estimated GFR 58 Random Glucose 106 Lactic Acid Calcium 9.1 Magnesium 2.2 Total Bilirubin 0.8 AST 41 H ALT 28 Alkaline Phosphatase 135 H Troponin I High Sens B-Natriuretic Peptide Total Protein 7.1 Albumin 3.3 L Lipase 9 Influenza Type A (PCR) Influenza Type B (PCR) RSV RNA Qual (PCR) SARS-CoV-2 RNA (RT-PCR) 05/02/22 05/02/22 05/02/22 15:08 18:38 18:38 MCV MCH MCHC RDW Plt Count MPV Immature Gran % (Auto) Neut % (Auto) Lymph % (Auto) Woodward % (Auto) Eos % (Auto) Baso % (Auto) Lymph # (Auto) Wood[place] # (Auto) Eos # (Auto) Baso # (Auto) Abs Immat Gran (auto) Absolute Neuts (auto) Absolute Nucleated RBC Nucleated RBC % (auto) PT INR Anion Gap Estim Creat Clear Calc Estimated GFR Random Glucose Lactic Acid Calcium Magnesium Total Bilirubin AST ALT Alkaline Phosphatase Troponin I High Sens 90.4 H B-Natriuretic Peptide 95 Total Protein Albumin Lipase Influenza Type A (PCR) NEGATIVE Influenza Type B (PCR) NEGATIVE RSV RNA Qual (PCR) NEGATIVE SARS-CoV-2 RNA (RT-PCR) NEGATIVE 05/02/22 05/02/22 18:38 20:37 MCV MCH MCHC RDW Plt Count MPV Immature Gran % (Auto) Neut % (Auto) Lymph % (Auto) Woodward % (Auto) Eos % (Auto) Baso % (Auto) Lymph # (Auto) Woodward # (Auto) Eos # (Auto) Baso # (Auto) Abs Immat Gran (auto) Absolute Neuts (auto) Absolute Nucleated RBC Nucleated RBC % (auto) PT INR Anion Gap Estim Creat Clear Calc Estimated GFR Random Glucose Lactic Acid 1.7 Calcium Magnesium Total Bilirubin AST ALT Alkaline Phosphatase Troponin I High Sens 75.2 H B-Natriuretic Peptide Total Protein Albumin Lipase Influenza Type A (PCR) Influenza Type B (PCR) RSV RNA Qual (PCR) SARS-CoV-2 RNA (RT-PCR) Imaging Radiologist's Impressions: Impressions Head CT 05/02/22 19:37 IMPRESSION: No acute intracranial abnormality including hemorrhage, mass effect, hydrocephalus, or acute territorial edematous infarction. Chest CTA 05/02/22 19:38 IMPRESSION: 1. No central or segmental pulmonary embolism. 2. Patchy, reticular nodular densities within the posterior aspect of the right lower lobe as well as to a lesser degree within the posterior aspect of the right upper lobe. Minimal, similar findings within the left lower lobe. Findings could represent a multifocal infectious or inflammatory process. 3. Small bilateral pulmonary nodules measuring up to 0.5 cm within the right upper lobe. According to the UPDATED 2017 Fleischner Society recommendations, the advised follow-up imaging for solid nodules < 6 mm is: LOW RISK PATIENT: No routine follow-up. HIGH RISK PATIENT: Optional CT at 12 months. 4. Reflux of contrast into the hepatic veins which could indicate elevated right heart pressures. 5. Age-indeterminate compression deformity of T11. VTE: Negative. Assessment and Plan (1) Pneumonia: Status: Acute Plan This is a 87-year-old male with pertinent history of essential hypertension, mixed hyperlipidemia, mood disorder who was brought to the emergency department for evaluation of generalized weakness and lethargy. #. Acute metabolic encephalopathy due to community-acquired pneumonia: Will admit and initiate empiric IV antibiotics. Resuscitated with IV crystalloids. #. Generalized weakness in the setting of above. Consulting Physical therapy to evaluate and treat #. Essential hypertension: Continue home antihypertensives #. Mood disorder: On Seroquel #. Mixed hyperlipidemia: On statin #. Elevated troponin, likely type 2 in the setting of increased demand Med rec pending DVT prophylaxis: Lovenox 40 mg daily Full code . Readdress with family in a.m. Cardiac diet Time Spent With Patient Time: Total time managing care of this patient today ____ minutes. Quality Stroke Does the patient have a stroke diagnosis?: No VTE Prior VTE?: No VTE Risk Level:: Medical - moderate - high VTE Device Contraindication: Treatment Not Indicated VTE Drug Contraindication: N/A - Med Ordered
[2022-05-02] MEDS: Acetaminophen Oral Liquid 650 MG/20.3 ML SOLUTION PO (22:29)
--- NOTE | 2022-05-02 22:30 | PC.NURSE ---
medicated per mar.
--- NOTE | 2022-05-02 22:48 | MHC.CM.ED ---
CM met with patient at request of Susi NINO prior to decision to admit patient. IMM not signed or reviewed. Pt lives with son. 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 Has private pay [employer] 8 hours/day/5 days/week. Uses a cane and walker. Normally independent with assistance, however, more confused and needing more help past several days. Daughter feels patient has declined, is more altered and lethargic. PCP, who is patient's niece told her to bring her father to the ED. HCP/son Cristian Godoy ([phone]). Copy requested. D/C plan: home with VNA per daughter's request. Family to transport. Pt may need PT and possible STR. Evaluated at [facility]. No referrals placed. CM to follow for discharge needs.
[2022-05-02] MEDS: Azithromycin 500 MG in 0.9 % Sodium Chloride 250 ML 125 MG IV (23:13)
[2022-05-02] MEDS: Enoxaparin Sodium 40 MG/0.4 ML SYRINGE SUBCUT (23:14)
--- NOTE | 2022-05-02 23:24 | PC.NURSE ---
pt was incontinent of urine, pt did void provider is aware.
[2022-05-02 23:52] VITALS: BP 97/40; PULSE 85; RESP 22; TEMP 36.6; O2SAT 97
[2022-05-02 23:56] VITALS: TEMP 36.1
[2022-05-03] VITALS (7 sets, daily range): BP systolic 115–147; BP diastolic 52–71; PULSE 70–87; RESP 13–20; TEMP 36.1–37.2; O2SAT 94–100; BMI 23.7
[2022-05-03 03:01] LABS: Appearance Urine Clear; Color Urine Yellow; Glucose Urine UA Negative (Negative); Leukocyte Esterase Urine Negative (Negative); Nitrite Urine Negative (Negative); PH 5.5 (5.0-9.0); Specific Gravity - Urine >= 1.030 (1.005-1.025); UMIC TRIGGER UACC YES; Urine Blood Negative (Negative); Urine Ketones Negative (Negative); Urine Protein 30 (1+) mg/dL (Neg-Trace)
[2022-05-03 03:44] LABS: Bacteria Urine None Seen (None Seen); WBC Urine 0-5 /HPF (0-5)
[2022-05-03 06:02] LABS: MANUAL DIFF FLAG NO
--- NOTE | 2022-05-03 06:17 | PC.NURSE ---
Called Daughter Rosie for update ([phone]). Family will be this morning, pt a waiting bed assignment.
[2022-05-03 06:22] LABS: Basophils Percent Auto 0.3 % (0-2); Eosinophils Percent Auto 0.3 % (0-4); Hematocrit 39.3 % (42.0-52.0); Hemoglobin 12.9 g/dl (14.0-18.0); Imm Gran Abs Auto 0.06 X10*3/uL (0.00-0.03); Imm Gran Pct Auto 0.5 % (0.0-0.4); Lymphocytes Absolute Auto 1.5 X10*3/uL (1.2-4.9); Mean Corpuscular HGB Conc 32.8 g/dl (31.0-36.0); Mean Corpuscular Hemoglobin 31.2 pg (27.0-33.0); Mean Corpuscular Volume 94.9 fL (80.0-98.0); Mean Platelet Volume 10.1 fL (9.4-12.4); Monocytes Absolute Auto 0.9 X10*3/uL (0.1-1.2); Monocytes Percent Auto 7.5 % (2-11); Neutrophils Absolute Auto 9.2 x10*3/uL (2.0-8.3); Neutrophils Percent Auto 78.4 % (45-73); Platelet Count 271 X10*3/uL (160-400); Red Blood Count 4.14 X10*6/uL (4.60-5.80); Red Cell Distribution Width 14.2 % (11.0-16.0); White Blood Count 11.7 X10*3/uL (4.8-10.8)
[2022-05-03 06:36] LABS: Anion Gap 18 (12-20); Blood Urea Nitrogen 24 mg/dL (9-16); Calcium 8.6 mg/dL (8.4-10.2); Carbon Dioxide 21 mmol/L (22-29); Chloride 109 mmol/L (96-108); Creatinine Clr Calc Pharmacy 59.7; Estimated Glomerular Filt Rate > 60; Glucose Random 79 mg/dL (60-115); Potassium 4.6 mmol/L (3.3-5.1); Sodium 143 mmol/L (135-145)
--- NOTE | 2022-05-03 07:21 | HO.PM.IMPN ---
Subjective Subjective Date of Service: 05/03/22 Interval History: Being followed for generalized weakness patient awake alert , requesting for food ,denies shortness of breath, no fevers, no chills oxygenation stable 100% on room air, as per patient's daughter he tolerates regular diet at home with no history of choking has not eaten and lab as 24 hours. Review of Systems Review of Systems: Yes all other systems are reviewed and are negative Physical Exam Vital Signs: Vital Signs: Last Vital Signs Temp 97.0 F 05/02/22 23:56 Pulse 86 05/03/22 07:08 Resp 18 05/03/22 07:08 BP 115/52 L 05/03/22 07:08 Pulse Ox 98 05/03/22 07:08 O2 Del Method Room Air 05/03/22 07:08 BMI result Body Mass Index 23.7 Const: Other: General frail male, resting comfortably in no acute distress. Neck supple no JVD. CVS irregular rate rhythm, Respiratory lungs clear to auscultation, no respiratory distress, bilateral lower lung base crackles Gastrointestinal abdomen soft, nontender, bowel sounds audible, no guarding , no rigidity. Extremities no edema. Neuro nonfocal Psych appropriate affect Objective Data Active Medications Acetaminophen (Acetaminophen 325 Mg Tablet) 650 mg PO Q6H PRN PRN Reason: Pain, Mild (Pain Scale 1-3) Acetaminophen (Acetaminophen Supp 650 Mg Supp.Rect) 650 mg FL Q6H PRN PRN Reason: Pain, Mild (Pain Scale 1-3) Enoxaparin Sodium (Enoxaparin Sodium 40 Mg/0.4 Ml Syringe) 40 mg SUBCUT Q24H [facility] Last Admin: 05/02/22 23:14 Dose: 40 mg Documented By: INOCENTE Azithromycin 500 mg/ Sodium (Chloride) 250 mls @ 125 mls/hr IV Q24H [facility] Last Infusion: 05/03/22 05:35 Dose: 125 mls/hr Documented By: INOCENTE Ceftriaxone Sodium 1 gm/ (Sodium Chloride) 50 mls @ 100 mls/hr IV Q24H [facility] Melatonin (Melatonin 3 Mg Tablet) 6 mg PO BEDTIME PRN PRN Reason: Insomnia Ondansetron HCl (Ondansetron Hcl 4 Mg/2 Ml Vial) 4 mg IVPUSH Q8H PRN PRN Reason: Nausea and Vomiting Pharmacy Consult (Consult Rx Perform Med Rec) 1 each MISCELLANE ONCE PRN PRN Reason: Consult order Sodium Chloride (0.9 % Sodium Chloride Flush 3 Ml Syringe) 3 ml IVFLUSH QSHIFT [facility] Last Admin: 05/03/22 05:35 Dose: Not Given Documented By: INOCENTE Non-Admin Reason: IV Running Labs 05/03/22 05:21 05/03/22 05:21 Labs: Laboratory Results - last 24 hr 05/02/22 05/02/22 05/02/22 15:08 15:08 15:08 MCV 95.4 MCH 31.4 MCHC 32.9 RDW 14.0 Plt Count 294 MPV 9.6 Immature Gran % (Auto) 0.4 Neut % (Auto) 75.3 H Lymph % (Auto) 14.7 L [place] % (Auto) 9.2 Eos % (Auto) 0.2 Baso % (Auto) 0.2 Lymph # (Auto) 1.5 B[place] # (Auto) 1.0 Eos # (Auto) 0.0 Baso # (Auto) 0.0 Abs Immat Gran (auto) 0.04 H Absolute Neuts (auto) 7.8 Absolute Nucleated RBC 0.000 Nucleated RBC % (auto) 0.0 PT 14.4 H INR 1.2 H Anion Gap 13 Estim Creat Clear Calc 45.7 Estimated GFR 58 Random Glucose 106 Lactic Acid Calcium 9.1 Magnesium 2.2 Total Bilirubin 0.8 AST 41 H ALT 28 Alkaline Phosphatase 135 H Troponin I High Sens B-Natriuretic Peptide Total Protein 7.1 Albumin 3.3 L Lipase 9 Urine Color Urine Appearance Urine pH Ur Specific [place] Urine Protein Urine Glucose (UA) Urine Ketones Urine Blood Urine Nitrite Ur Leukocyte Esterase Urine RBC Urine WBC Ur Squamous Epith Cells Urine Bacteria Hyaline Casts Influenza Type A (PCR) Influenza Type B (PCR) RSV RNA Qual (PCR) SARS-CoV-2 RNA (RT-PCR) 05/02/22 05/02/22 05/02/22 15:08 18:38 18:38 MCV MCH MCHC RDW Plt Count MPV Immature Gran % (Auto) Neut % (Auto) Lymph % (Auto) B[place] % (Auto) Eos % (Auto) Baso % (Auto) Lymph # (Auto) [place] # (Auto) Eos # (Auto) Baso # (Auto) Abs Immat Gran (auto) Absolute Neuts (auto) Absolute Nucleated RBC Nucleated RBC % (auto) PT INR Anion Gap Estim Creat Clear Calc Estimated GFR Random Glucose Lactic Acid Calcium Magnesium Total Bilirubin AST ALT Alkaline Phosphatase Troponin I High Sens 90.4 H B-Natriuretic Peptide 95 Total Protein Albumin Lipase Urine Color Urine Appearance Urine pH Ur Specific [place] Urine Protein Urine Glucose (UA) Urine Ketones Urine Blood Urine Nitrite Ur Leukocyte Esterase Urine RBC Urine WBC Ur Squamous Epith Cells Urine Bacteria Hyaline Casts Influenza Type A (PCR) NEGATIVE Influenza Type B (PCR) NEGATIVE RSV RNA Qual (PCR) NEGATIVE SARS-CoV-2 RNA (RT-PCR) NEGATIVE 05/02/22 05/02/22 05/03/22 18:38 20:37 02:54 MCV MCH MCHC RDW Plt Count MPV Immature Gran % (Auto) Neut % (Auto) Lymph % (Auto) B[place] % (Auto) Eos % (Auto) Baso % (Auto) Lymph # (Auto) B[place] # (Auto) Eos # (Auto) Baso # (Auto) Abs Immat Gran (auto) Absolute Neuts (auto) Absolute Nucleated RBC Nucleated RBC % (auto) PT INR Anion Gap Estim Creat Clear Calc Estimated GFR Random Glucose Lactic Acid 1.7 Calcium Magnesium Total Bilirubin AST ALT Alkaline Phosphatase Troponin I High Sens 75.2 H B-Natriuretic Peptide Total Protein Albumin Lipase Urine Color Yellow Urine Appearance Clear Urine pH 5.5 Ur Specific Haskell >= 1.030 H Urine Protein 30 (1+) H Urine Glucose (UA) Negative Urine Ketones Negative Urine Blood Negative Urine Nitrite Negative Ur Leukocyte Esterase Negative Urine RBC 3-5 H Urine WBC 0-5 Ur Squamous Epith Cells 3-5 Urine Bacteria None Seen Hyaline Casts 3-5 Influenza Type A (PCR) Influenza Type B (PCR) RSV RNA Qual (PCR) SARS-CoV-2 RNA (RT-PCR) 05/03/22 05/03/22 05:21 05:21 MCV 94.9 MCH 31.2 MCHC 32.8 RDW 14.2 Plt Count 271 MPV 10.1 Immature Gran % (Auto) 0.5 H Neut % (Auto) 78.4 H Lymph % (Auto) 13.0 L B[place] % (Auto) 7.5 Eos % (Auto) 0.3 Baso % (Auto) 0.3 Lymph # (Auto) 1.5 B[place] # (Auto) 0.9 Eos # (Auto) 0.0 Baso # (Auto) 0.0 Abs Immat Gran (auto) 0.06 H Absolute Neuts (auto) 9.2 H Absolute Nucleated RBC 0.000 Nucleated RBC % (auto) 0.0 PT INR Anion Gap 18 Estim Creat Clear Calc 59.7 Estimated GFR > 60 Random Glucose 79 Lactic Acid Calcium 8.6 Magnesium Total Bilirubin AST ALT Alkaline Phosphatase Troponin I High Sens B-Natriuretic Peptide Total Protein Albumin Lipase Urine Color Urine Appearance Urine pH Ur Specific [place] Urine Protein Urine Glucose (UA) Urine Ketones Urine Blood Urine Nitrite Ur Leukocyte Esterase Urine RBC Urine WBC Ur Squamous Epith Cells Urine Bacteria Hyaline Casts Influenza Type A (PCR) Influenza Type B (PCR) RSV RNA Qual (PCR) SARS-CoV-2 RNA (RT-PCR) Assessment and Plan (1) Pneumonia: Status: Acute (2) Weakness: Status: Acute Plan 87-year-old male with pertinent history of essential hypertension, mixed hyperlipidemia, mood disorder who was brought to the emergency department for evaluation of generalized weakness and lethargy. #.? Acute toxic metabolic encephalopathy due to community-acquired pneumonia: Continue IV ceftriaxone and azithromycin follow blood cultures no fevers is stable oxygenation on room air, noted cough with bedside swallow eval, therefore will obtain speech therapy eval. Follow blood cultures no sepsis #.? Generalized weakness in the setting of above.? CT head unremarkable, normal electrolytes, Seen by Physical therapy they recommend short-term rehab due to mild to moderate balance impairment and increased risk for falls # dysphagia seen by speech therapy they recommend ground mechanical altered with nectar thick liquids pills crushed in pureed will obtain nutrition consult due to risk of dehydration. #.? Essential hypertension:? Soft blood pressure will hold ramipril 10 mg and continue metoprolol follow BP #.? Mood disorder: Patient's daughter not aware of underlying psychiatric history and reason for Seroquel but requesting to gradually wean Seroquel #.? Mixed hyperlipidemia: On Crestor will check lipid profile #.? Elevated troponin, likely type 2 in the setting of increased demand, troponin 90.4 repeat 75.2 EKG showed atrial fibrillation no, no ischemic changes history of coronary artery continue metoprolol and Plavix and check lipid profile # chronic persistent atrial fibrillation continue metoprolol not on anticoagulation likely due to recurrent falls. DVT prophylaxis: Lovenox 40 mg daily Full code .? In my clinical opinion patient will need continued inpatient hospitalization due to generalized weakness pneumonia requiring IV antibiotic and medication adjustment. Time Spent With Patient Time: Total time managing care of this patient today ____ minutes. Quality Stroke Does the patient have a stroke diagnosis?: No VTE Prior VTE?: No VTE Risk Level:: Medical - moderate - high VTE Device Contraindication: Treatment Not Indicated VTE Drug Contraindication: N/A - Med Ordered
--- NOTE | 2022-05-03 08:08 | PHA.MEDREC ---
Pharmacy Consult ? Medication Reconciliation Pharmacy has completed the medication reconciliation. Spoke with patient's son Cristian [phone] to confirm medications. Reports they stopped the quetiapine because patient would wake up confused in the middle of the night. Sayda Milner, PharmD
[2022-05-03] MEDS: 0.9 % Sodium Chloride Flush 3 ML SYRINGE IVFLUSH (09:28)
[2022-05-03] MEDS: Metoprolol Succinate ER 25 MG TAB.ER.24H PO (11:55)
--- NOTE | 2022-05-03 18:22 | MHC.SL.SWA ---
Addendum entered and electronically signed by Karen Schaefer MA, CCC-CENTRAL STERILIZATION TECHNICIAN 05/04/22 08:59: D.S. Original Note: Risk of Aspiration Due to: Lethargy History of Pneumonia Dysphasia Diet Status: Liquid Consistency and Strategies for Safe Swallow: Liquid Intake Recommendation: [place] Thick Liquid Intake Strategies: No Straws Solid Food Consistency: Dietary Recommendations: Grnd/Mech Altered (NDD2) Oral Medication Intake: Crushed with Puree Please contact the pharmacy regarding appropriate crushable or liquid drug formulations that are available whenever modified delivery is recommended. Compensatory Strategies and Precautions to be Taken for Safe Swallow: Sitting Upright (90 deg) No Straw Liquids from Cup Liquids from Spoon Small Bites and Sips Rate of Ingestion Change Oral Check Avoid Specific Foods Supervision While Eating and Drinking for Safe Swallow: Total Assistance (1:1) Foods to Avoid: Tough, sticky, hard to chew foods Swallowing Recommended Treatments: Recommendation for Speech: Outpatient Speech Therapy Inpatient Speech Therapy Comment: Recommend GROUND/MECH ALTERED solids (NDD2), NECTAR thick liquid, pills CRUSHED in puree. Pt swallowing twice for all PO with second delayed approx 10 seconds after first swallow. Recommend full assist to monitor for s/s of aspiration, monitor for swallow, and provide cueing to slow rate of ingestion. Ice chips OK. Aspiration precautions apply. Oral care recommended. Recommend dietary consult d/t risk of dehydration. CENTRAL STERILIZATION TECHNICIAN to follow for possible upgrade. Recommend MBSS if swallowing difficulties persist. RN, MD, and RD notified via [place]. Nursing updated on floor. Patient's whiteboard updated. Lawn Maintenance Worker Clinican/Clinical Fellow: Yes: Purnima Hoang M.A., CF-CENTRAL STERILIZATION TECHNICIAN Supervisory Statement: I have reviewed and agree with the student/clinical fellow's documentation: Speech Language Pathologist:
[2022-05-03] MEDS: cefTRIAXone sodium 1 GM in 0.9 % Sodium Chloride 50 ML IV (21:30)
[2022-05-04] MEDS: Azithromycin 500 MG in 0.9 % Sodium Chloride 250 ML 125 MG IV ×2 (00:17→22:14)
[2022-05-04] MEDS: Enoxaparin Sodium 40 MG/0.4 ML SYRINGE SUBCUT ×2 (00:22→22:14)
[2022-05-04] MEDS: 0.9 % Sodium Chloride Flush 3 ML SYRINGE IVFLUSH ×3 (00:23→17:28)
[2022-05-04 03:52] VITALS: BP 149/66; PULSE 89; RESP 16; TEMP 36.8; O2SAT 98
[2022-05-04 06:37] LABS: Cholesterol 102 mg/dL; HDL Cholesterol 41 mg/dL; LDL Cholesterol Calculated 52 mg/dl; Triglycerides 47 mg/dL
[2022-05-04 07:19] VITALS: BP 135/65; PULSE 94; RESP 15; TEMP 36.8; O2SAT 93
[2022-05-04] MEDS: Metoprolol Succinate ER 25 MG TAB.ER.24H PO (08:18)
[2022-05-04] MEDS: Clopidogrel Bisulfate 75 MG TABLET PO (08:18)
[2022-05-04] MEDS: Dextrose 5 % and Lactated Ring 1,000 ML 100 ML IVCONT ×2 (08:30→17:28)
[2022-05-04 11:14] VITALS: BP 127/60; PULSE 74; RESP 16; TEMP 36.6; O2SAT 96
--- NOTE | 2022-05-04 12:33 | HO.PM.IMPN ---
Subjective Subjective Date of Service: 05/04/22 Interval History: somnolent easily arousable onset question appropriately denies shortness of breath, no cough, denies chest pain, no fevers, no chills overnight, had a normal bowel movement, no nausea, no vomiting. Review of Systems Review of Systems: Yes all other systems are reviewed and are negative Physical Exam Vital Signs: Vital Signs: Last Vital Signs Temp 97.8 F 05/04/22 11:14 Pulse 74 05/04/22 11:14 Resp 16 05/04/22 11:14 BP 127/60 05/04/22 11:14 Pulse Ox 96 05/04/22 11:14 O2 Del Method Room Air 05/04/22 11:14 BMI result Body Mass Index 23.7 Const: Other: General frail gentleman, resting in bed somnolent easily arousable, in no acute distress.? Neck supple no JVD. CVS? irregular rate rhythm, Respiratory lungs clear to auscultation, no respiratory distress, no use of accessory muscles Gastrointestinal abdomen soft, nontender, bowel sounds audible, no guarding , no rigidity. Extremities no edema. Skin dry with multiple old scabs Neuro nonfocal Psych appropriate affect Objective Data Active Medications Acetaminophen (Acetaminophen 325 Mg Tablet) 650 mg PO Q6H PRN PRN Reason: Pain, Mild (Pain Scale 1-3) Acetaminophen (Acetaminophen Supp 650 Mg Supp.Rect) 650 mg LA Q6H PRN PRN Reason: Pain, Mild (Pain Scale 1-3) Clopidogrel Bisulfate (Clopidogrel Bisulfate 75 Mg Tablet) 75 mg PO DAILY [facility] Last Admin: 05/04/22 08:18 Dose: 75 mg Documented By: JESUS Enoxaparin Sodium (Enoxaparin Sodium 40 Mg/0.4 Ml Syringe) 40 mg SUBCUT Q24H [facility] Last Admin: 05/04/22 00:22 Dose: 40 mg Documented By: JOCELYNE Azithromycin 500 mg/ Sodium (Chloride) 250 mls @ 125 mls/hr IV Q24H [facility] Last Infusion: 05/04/22 03:08 Dose: 125 mls/hr Documented By: JOCELYNE Ceftriaxone Sodium 1 gm/ (Sodium Chloride) 50 mls @ 100 mls/hr IV Q24H [facility] Last Infusion: 05/03/22 23:49 Dose: 100 mls/hr Documented By: JOCELYNE Dextrose/Lactated Ringer's (D5lr) 1,000 mls @ 100 mls/hr IVCONT .Q10H [facility] Last Admin: 05/04/22 08:30 Dose: 100 mls/hr Documented By: JESUS Melatonin (Melatonin 3 Mg Tablet) 6 mg PO BEDTIME PRN PRN Reason: Insomnia Metoprolol Succinate (Metoprolol Succinate Er 25 Mg Tab.Er.24h) 25 mg PO DAILY [facility]; Protocol Last Admin: 05/04/22 08:18 Dose: 25 mg Documented By: JESUS Ondansetron HCl (Ondansetron Hcl 4 Mg/2 Ml Vial) 4 mg IVPUSH Q8H PRN PRN Reason: Nausea and Vomiting Pharmacy Consult (Consult Rx Perform Med Rec) 1 each MISCELLANE ONCE PRN PRN Reason: Consult order Sodium Chloride (0.9 % Sodium Chloride Flush 3 Ml Syringe) 3 ml IVFLUSH QSHIFT [facility] Last Admin: 05/04/22 08:18 Dose: 3 ml Documented By: JESUS Labs 05/03/22 05:21 05/03/22 05:21 Labs: Laboratory Results - last 24 hr 05/04/22 05:40 Triglycerides 47 Cholesterol 102 LDL Cholesterol, Calc 52 HDL Cholesterol 41 Microbiology Microbiology Results: Microbiology 05/02/22 18:38 Blood Culture - Preliminary Blood - Venous No growth after 24 hours. 05/02/22 18:38 Blood Culture - Preliminary Blood - Venous No growth after 24 hours. Assessment and Plan (1) Pneumonia: Status: Acute (2) Weakness: Status: Acute Plan 87-year-old male with pertinent history of essential hypertension, mixed hyperlipidemia, mood disorder who was brought to the emergency department for evaluation of generalized weakness and lethargy. #.? Acute toxic metabolic encephalopathy due to community-acquired pneumonia: awake alert seem to be at his baseline, was somnolent this morning Continue IV ceftriaxone and azithromycin day 3/5, blood cultures x2 neg., no fevers stable oxygenation on room air # dysphagia seen by speech therapy they recommend mechanical altered and nectar thick liquids, pills crushed #.? Generalized weakness in the setting of above.? CT head unremarkable, normal electrolytes, Seen by Physical therapy they recommend short-term rehab due to mild to moderate balance impairment and increased risk for falls #.? Essential hypertension:? Soft blood pressure continue metoprolol follow BP #.? Mood disorder: Seroquel discontinued as outpatient, no behavioral issues #.? Mixed hyperlipidemia: DC statin, total cholesterol 102, LDL 52 recommend to recheck lipid profile in 6 months #.? Elevated troponin, likely type 2 in the setting of increased demand, troponin 90.4 repeat 75.2 EKG showed atrial fibrillation , no ischemic changes history of coronary artery dz, continue metoprolol and Plavix # chronic persistent atrial fibrillation continue metoprolol not on anticoagulation likely due to recurrent falls. DVT prophylaxis: Lovenox 40 mg daily Full code .? In my clinical opinion patient will need continued inpatient hospitalization due to generalized weakness pneumonia requiring IV antibiotic and medication adjustment. Time Spent With Patient Time: Total time managing care of this patient today ____ minutes. Quality Stroke Does the patient have a stroke diagnosis?: No VTE Prior VTE?: No VTE Risk Level:: Medical - moderate - high VTE Device Contraindication: Treatment Not Indicated VTE Drug Contraindication: N/A - Med Ordered
--- NOTE | 2022-05-04 13:15 | MHC.SL.SWA ---
Speech Pathologist Impression: Risk of Aspiration Due to: Lethargy History of Pneumonia Dysphasia Diet Status: Recommend continue on current diet, Ground Mechanical/Altered (NDD2) with Rumsey Thick liquids, pills crushed in puree. Liquid Consistency and Strategies for Safe Swallow: Liquid Intake Recommendation: Rumsey Thick Liquid Intake Strategies: No Straws Solid Food Consistency: Dietary Recommendations: Grnd/Mech Altered (NDD2) Additional Modifications to Solid Foods: Patient requires careful, attentive feeding, and eats at a slow rate. After each bite, wait, observe for swallow, do oral check for pocketing or residual, follow each bite with sip of Rumsey thick liquid. Administer Nutritional Shake only when cold and by tsp only. Oral Medication Intake: Crushed with Puree Please contact the pharmacy regarding appropriate crushable or liquid drug formulations that are available whenever modified delivery is recommended. Compensatory Strategies and Precautions to be Taken for Safe Swallow: Sitting Upright (90 deg) No Straw Liquids from Cup Liquids from Spoon Small Bites and Sips Alternate Liquids/Solids Rate of Ingestion Change Oral Check Avoid Specific Foods Supervision While Eating and Drinking for Safe Swallow: Total Assistance (1:1) Foods to Avoid: Tough, sticky, hard to chew foods Swallowing Recommended Treatments: Recommendation for Speech: Outpatient Speech Therapy Inpatient Speech Therapy Comment: In AM, RN contacted WELDING SUPERVISOR as there were concerns about Patient at breakfast, coughing on meal. Patient had been fed by MEAL TEMPERER. WELDING SUPERVISOR wend to room, patient was sleeping in chair, roused briefly but was too lethargic/not appropriate for trials. WELDING SUPERVISOR returned at lunch, with daughter present in room and patient awake and alert and interested in eating. Patient was given forkful of ground chicken with gravy, with patient producing a prolonged period of mastication on small amount of food, with swallow initiated after a delay, and some oral residual in mouth. Patient was given a controlled cup sip of NT juice, with cleared residual, however noted mild delay initiating swallow. Patient took two more forkfuls of the chicken, each time producing a prolonged period of mastication and piecemeal swallow with residual cleared by sip of liquid. Pt noted to have somewhat improved/less delayed oral phase on mashed potatoes with minimal residual after swallow. Patient then said enough. Patient was encouraged to take ensure shake which came with tray. WELDING SUPERVISOR inititially trialed sip of shake by straw, with patient producing an immediate and prolonged cough, with audible upper airway congestion noted. At cessation of coughing, patient appeared to return to baseline, no audible upper airway noise, wet voice. Patient was then given sips of ensure by tsp, with improved management noted, mild delay initiating swallow, no aspiration signs. Recommend continue on current diet, Ground Mechanical/Altered (NDD2) with Rumsey Thick liquids, pills crushed in puree. Patient requires careful, attentive feeding, and eats at a slow rate. After each bite, wait, observe for swallow, do oral check for pocketing or residual, follow each bite with sip of Rumsey thick liquid. Administer Nutritional Shake only when cold and by tsp only. Discussed recommendations with nursing, . Frequency/Duration: Date Range for Service Req: Timeline to reassess: At Risk Specialist Clinican/Clinical Fellow: No Supervisory Statement: I have reviewed and agree with the student/clinical fellow's documentation: N/A Speech Language Pathologist: Maite Rowell M.A., CCC-WELDING SUPERVISOR
--- NOTE | 2022-05-04 15:44 | MHC.CM.PN ---
Per RN CM, Patient is being changed from OBSERVATION to INPATIENT; CM has met with Patient at bedside and addressed IMM with him, providing him with the original and placing a copy on the chart.
[2022-05-04 15:48] VITALS: BP 125/67; PULSE 67; RESP 19; TEMP 37; O2SAT 97
[2022-05-04 20:00] VITALS: BP 128/61; PULSE 81; RESP 18; TEMP 37.2; O2SAT 95
[2022-05-04] MEDS: Melatonin 3 MG TABLET 6 MG PO (21:29)
[2022-05-04] MEDS: cefTRIAXone sodium 1 GM in 0.9 % Sodium Chloride 50 ML IV (21:29)
[2022-05-05] VITALS: BP 137/72; PULSE 78; RESP 18; TEMP 36.6; O2SAT 94
[2022-05-05 04:00] VITALS: BP 122/60; PULSE 75; RESP 18; TEMP 36.3; O2SAT 95
[2022-05-05] MEDS: Dextrose 5 % and Lactated Ring 1,000 ML 100 ML IVCONT (05:39)
[2022-05-05 07:49] VITALS: BP 134/63; PULSE 73; RESP 20; TEMP 37.2; O2SAT 95
[2022-05-05] MEDS: Metoprolol Succinate ER 25 MG TAB.ER.24H PO (08:42)
[2022-05-05] MEDS: 0.9 % Sodium Chloride Flush 3 ML SYRINGE IVFLUSH (08:43)
[2022-05-05] MEDS: Clopidogrel Bisulfate 75 MG TABLET PO (08:43)
--- NOTE | 2022-05-05 09:55 | PM.DS ---
DS: Providers Provider Date of Service: 05/05/22 Date of admission: 05/04/22 15:50 Primary care physician: Clarita Godoy MD DS: Diagnosis Discharge Diagnosis (1) Pneumonia: Status: Acute (2) Weakness: Status: Acute DS: Summary Hospital Course Hospital Course: Date of Service: 05/02/22 Chief Complaint: Weakness This is a 87-year-old male with pertinent history of essential hypertension, mixed hyperlipidemia, mood disorder who was brought to the emergency department for evaluation of generalized weakness and lethargy.? Patient is a poor historian and does not know why he is here.? History obtained from ER provider and chart review.? Patient has not been eating and drinking for the last few days.? He is not himself as per the family.? He has been weak and lethargic.? Does endorse productive cough.? Unable to provide review of systems. Hospital course: 87-year-old male with pertinent history of essential hypertension, mixed hyperlipidemia, mood disorder who was brought to the emergency department for evaluation of generalized weakness and lethargy. #.? Acute toxic metabolic encephalopathy due to community-acquired pneumonia, admitted to medical floor treated with IV ceftriaxone and azithromycin, blood cultures x2 came back negative patient had no fevers oxygenation remains stable on room air confusion resolved patient seems to be at his baseline, was noted to have cough on clear liquid therefore evaluated by speech therapy they recommended mechanically altered NDD2 and nectar thick liquids, continue aspiration precautions and speech therapy evaluation. ? #.? Generalized weakness likely due to above, CT head unremarkable, normal electrolytes, Seen by Physical therapy they recommend short-term rehab due to mild to moderate balance impairment and increased risk for falls. #.? Essential hypertension:?continue metoprolol follow BP #.? Mood disorder: ? Seroquel discontinued as outpatient, no behavioral issues. #.? Mixed hyperlipidemia:? DC statin, total cholesterol 102, LDL 52 recommend to recheck lipid profile in 6 months. #.? Elevated troponin, likely type 2 in the setting of increased demand, troponin 90.4 repeat 75.2 EKG showed atrial fibrillation , no ischemic changes history of coronary artery dz, continue metoprolol and Plavix. # chronic persistent atrial fibrillation continue metoprolol not on anticoagulation likely due to recurrent falls. Time Spent with Patient Time attestation: Total time managing care of this patient today ____ minutes. Discharge coordination time: Greater than 30 minutes Quality: Safe Use of Opioids Does Pt have an Active Cancer Diagnosis on the Problem List?: No Quality: Stroke Does the patient have a stroke diagnosis?: No Physical Exam Vital Signs: Vital Signs: Last Vital Signs Temp 98.9 F 05/05/22 07:49 Pulse 73 05/05/22 07:49 Resp 20 05/05/22 07:49 BP 134/63 05/05/22 07:49 Pulse Ox 95 05/05/22 07:49 O2 Del Method Room Air 05/05/22 07:49 BMI result Body Mass Index 23.7 Const: Other: General frail gentleman, resting? in bed somnolent easily arousable, in no acute distress.? Neck supple no JVD. CVS? irregular rate rhythm, Respiratory lungs clear to auscultation, no respiratory distress,? no use of accessory muscles Gastrointestinal abdomen soft, nontender, bowel sounds audible, no guarding , no rigidity. Extremities no edema. Skin dry scaly, with multiple old scabs. Neuro nonfocal Psych appropriate affect DS: Data Data Completed and Pending Labs on day of discharge: Preliminary micro results at discharge 05/02/22 18:38 Blood Culture - Preliminary Blood - Venous No growth after 48 hours. 05/02/22 18:38 Blood Culture - Preliminary Blood - Venous No growth after 48 hours. Discharge Plan Discharge Anticipated Discharge Date/Time: 05/05/22 09:32 Patient Disposition: Xfer SNF Discharge Diagnosis: Community-acquired pneumonia Acute toxic metabolic encephalopathy Dysphagia Referrals: Clarita Godoy MD [Primary Care Provider] - 1 Week Discharge Medications: New azithromycin 250 mg Tablet 250 mg PO Q24H Qty: 3 0RF cefuroxime axetil 500 mg Tablet 500 mg PO BID Qty: 6 0RF Continued clopidogrel 75 mg tablet 75 mg PO DAILY metoprolol succinate 25 mg tablet extended release 24 hr 25 mg PO DAILY Discontinued ramipril 10 mg capsule 10 mg PO DAILY rosuvastatin 20 mg tablet 20 mg PO DAILY Discharge Orders: Discharge Order (Routine); Ordered 05/05/22 Ordered By: Cierra Monroe Diet: Regular diet Activity on Discharge: As tolerated Stand Alone Forms: Patient Portal Discharge page Care Plan Goals: Dysphagia take nectar thick liquids, ground mechanical altered diet, Magic cup 4 oz t.i.d., Ensure 240 t.i.d. Take antibiotics for 3 more days Physical therapy for impaired functional mobility, decreased balance and increased risk of falls Health Concerns: Take all home medications as prescribed Plan of Treatment: Outpatient follow-up with primary care physician Assessment: As above
[2022-05-05 10:45] LABS: COVID-19 Test Negative (Negative); IDNOW Serial# 08D9AD1C
--- NOTE | 2022-05-05 10:59 | MHC.CM.PN ---
Patient has been medically cleared for dc to SNF/STR today. Patient will dc to his and his family's first choice SNF[facility] today at 1:30 PM via [facility]. IMM addressed with Patient yesterday.
[2022-05-05 11:31] VITALS: BP 129/60; PULSE 66; RESP 20; TEMP 37.2; O2SAT 100
== END 2022-05-05 14:14 | disposition intermediate care facility (04) | DRG 193 ==
LOC: HO.ED 21:54 → HO.EDOVER 22:29 → HO.IMC 05-03 07:27
PROVIDERS: Physician Assistant; Physician Assistant Medical; Admitting Provider Student in an Organized Health Care Education/Training Program; Emergency Provider Student in an Organized Health Care Education/Training Program; PCP Family Medicine; Visit Provider Hospitalist
DX: J18.9 Pneumonia, unspecified organism (principal); G92.8 Other toxic encephalopathy; I48.19 Other persistent atrial fibrillation; I24.8 Other forms of acute ischemic heart disease; E86.0 Dehydration; E78.2 Mixed hyperlipidemia; I10 Essential (primary) hypertension; F39 Unspecified mood [affective] disorder; R13.10 Dysphagia, unspecified; Z20.822 Contact with and (suspected) exposure to COVID-19; Z79.02 Long term (current) use of antithrombotics/antiplatelets; Z79.899 Other long term (current) drug therapy
CPT/HCPCS: 0241U; 36415; 70450; 71275; 80048; 80053; 80061; 81001; 81003; 83605; 83690; 83735; 83880; 84484; 85025; 85610; 87040; 87635; 92526; 92610; 93005; 97162; 97530; 99222; 99285; J0456; J0696; J1650; Q9967